=== PATIENT | male | born 1950 | race African-American/Black ===

== ENCOUNTER 2017-10-19 11:05 | Outpatient (CLI) | payer MEDICARE, MEDICAID ==
[2017-10-19 11:36] LABS: CREATININE 0.9 mg/dL (0.6-1.2)
[2017-10-19] MEDS ORDERED: BARIUM SULFATE 450 ML BOTTLE PO ONE (13:14)
--- NOTE | 2017-10-19 14:18 | CT Report ---
Procedure Date: 10/19/2017 Accession Number: [id number] / [id number] Procedure: CT - Chest/Lung Screen Low Dose W/O CPT Code: FULL RESULT: EXAM CT LUNG SCREEN EXAM DATE: 10/19/2017 1:15 PM. HISTORY: 67 [id number] patient with [id number] smoking history. Currently smoking: No. The patient reportedly has a history of CBD and weight loss. COMPARISON: None.. TECHNIQUE: CT examination of the entire thorax without contrast was performed using low-dose technique. Thin section coronal, axial, sagittal and MIP axial images were obtained. In accordance with CT protocol optimization, one or more of the following dose reduction techniques were utilized for this exam: automated exposure control, adjustment of mA and/or KV based on patient size, or use of iterative reconstructive technique. FINDINGS: Nodules: Right upper lobe: 0.5 cm spiculated apical nodule, 6 mm solid nodule posteriorly. Right middle lobe: 0.7 cm nodule in the horizontal fissure, favor lymph node. Right lower lobe: None. Left upper lobe: 0.6 cm nodule along the fissure, favor lymph node. Left lower lobe: None. Emphysema: None. Pleura: Unremarkable. Aorta: Unremarkable. Mediastinum: None. Coronary calcifications: None. Other pulmonary findings: None. Other extrapulmonary findings: None. IMPRESSION: Lung-RADS ASSESSMENT CATEGORY: 3 -probably benign finding(s) -short-term follow-up suggested; includes nodules with a low likelihood of becoming a clinically active cancer. RECOMMENDATION: Follow-up low dose chest CT in 6 months. RADIA
--- NOTE | 2017-10-21 04:10 | CT Report ---
Procedure Date: 10/19/2017 Accession Number: [id number] / [id number] Procedure: CT - Abdomen/Pelvis W/O CPT Code: FULL RESULT: EXAM: Abdomen/Pelvis W/O DATE: 10/19/2017 1:15 PM CLINICAL HISTORY: ABNORMAL WEIGHT LOSS COMPARISON: None. TECHNIQUE: Routine helical CT imaging was performed through the abdomen and pelvis. IV contrast: None. Enteric contrast: Yes. Reconstructions: Coronal and sagittal. In accordance with CT protocol optimization, one or more of the following dose reduction techniques were utilized for this exam: automated exposure control, adjustment of mA and/or KV based on patient size, or use of iterative reconstructive technique. FINDINGS: The noncontrast liver, gallbladder, spleen, adrenal glands, kidneys, pancreas are unremarkable. There is no bowel obstruction, free fluid or free air. No abdominal or pelvic mass or lymphadenopathy is identified. Degenerative levoconvex thoracolumbar scoliosis is identified. There are no aggressive osseous lesions. IMPRESSION: No mass is identified. Please note that sensitivity of noncontrast CT abdomen pelvis is limited. Degenerative scoliosis of the lumbar spine. RADIA
== END 2017-10-19 11:06 | disposition home or self-care (01) ==
LOC: LAB 11:05
PROVIDERS: ATTEND Family Medicine
DX: Z12.2 Encounter for screening for malignant neoplasm of respiratory organs (principal); R91.8 Other nonspecific abnormal finding of lung field; R63.4 Abnormal weight loss; Z87.891 Personal history of nicotine dependence; Z86.19 Personal history of other infectious and parasitic diseases
CPT/HCPCS: 36415; 74176; 82565; A9270; G0297

== ENCOUNTER 2017-11-23 12:58 | Emergency (ER) | payer MEDICARE, MEDICAID ==
--- NOTE | 2017-11-23 14:23 | ED Physician Documentation ---
PD HPI CHEST PAIN - Stated complaint Stated Complaint: CHEST PX - Chief complaint Chief Complaint: Cardiac - History obtained from History obtained from: Patient - History of Present Illness Timing - onset: Other (67-year-old gentleman with months worth of unintentional weight loss. He says every time he eats he vomits afterwards. He had a CAT scan done which was negative. He has not had an upper endoscopy. Over the last month or so he has had constant left-sided sharp chest pain that radiates to the back and like a band around his upper abdomen that is been much worse over the last 48 hours. He has had some difficulty breathing but no cough. The chest pain is nonexertional and non-positional. There is nothing he does the changes it. Is not related to eating. Again it has been constant for the last month but worse over the last 4 days.) Review of Systems Constitutional: denies: Fever, Chills Cardiac: reports: Chest pain / pressure. denies: Palpitations, Pedal edema, Calf pain Respiratory: reports: Dyspnea. denies: Cough, Hemoptysis, Wheezing GI: reports: Abdominal Pain, Nausea, Vomiting PD PAST MEDICAL HISTORY - Past Medical History Cardiovascular: None, Hypertension Respiratory: COPD Endocrine/Autoimmune: None GI: GERD, Hepatitis : Benign prostate hypertrophy HEENT: Other Psych: Depression, Anxiety Musculoskeletal: Osteoarthritis, Chronic back pain Derm: None - Past Surgical History General: Colonoscopy - Present Medications Home Medications: Ambulatory Orders Medication Instructions Recorded Confirmed RX: Buspirone HCl 10 mg PO DAILY 08/30/13 11/25/14 RX: Gabapentin 400 mg PO TID 08/30/13 11/25/14 Albuterol Sulfate [Proair Hfa] 1 puffs IH BID 11/22/14 11/25/14 Hydrocodone/Acetaminophen 1 - 2 each PO Q6H PRN #7 tablet 11/23/17 [Hydrocodon-Acetaminophen 5-325] Ipratropium/Albuterol [Combivent 11/23/17 Respimat] RX: Doxazosin [Cardura] 4 mg DAILY 11/23/17 11/23/17 RX: Oxybutynin [Ditropan] 15 mg DAILY 11/23/17 11/23/17 RX: buPROPion [Wellbutrin Sr] 150 mg DAILY 11/23/17 11/23/17 RX: raNITIdine [Zantac] 150 mg 11/23/17 - Allergies Allergies/Adverse Reactions: Allergies Allergy/AdvReac Type Severity Reaction Status Date / Time mercury (elemental) Allergy Intermediate Hives Verified 11/25/14 10:22 [Mercury (Elemental)] iodine AdvReac Intermediate Emesis Verified 11/22/14 14:44 - Social History Does the pt smoke?: Yes Does the pt drink ETOH?: No Does the pt have substance abuse?: No - Family History Family history: reports: Non contributory PD ED PE NORMAL - Vitals Vital signs reviewed: Yes - General General: Alert and oriented X 3, No acute distress - HEENT HEENT: PERRL, EOMI - Neck Neck: Supple, no meningeal sign, No bony TTP - Cardiac Cardiac: RRR, No murmur - Respiratory Respiratory: No respiratory distress, Clear bilaterally - Abdomen Abdomen: Normal bowel sounds, Soft, Non tender - Extremities Extremities: No edema, No calf tenderness / cord - Neuro Neuro: Alert and oriented X 3, Normal speech - Psych Psych: Normal mood, Normal affect Results - Vitals Vitals: Vital Signs - 24 hr 11/23/17 11/23/17 13:01 16:31 Temperature 37.0 C Heart Rate 52 L 65 Respiratory 16 18 Rate Blood Pressure 152/116 H 119/87 H O2 Saturation 97 97 Oxygen O2 Source Room air - EKG (time done) 1307 Rate: Rate (enter#) (98) Rhythm: NSR, LAE [place]: Normal Intervals: Normal [place] QRS: LVH Compare to prior EKG: Changed from prior EKG (Last EKG on the chart was August 29, 2013, since then he has increased left ventricular hypertrophy.) Computer interpretation: Agree with computer - Labs Labs: Laboratory Tests 11/23/17 11/23/17 11/23/17 13:20 13:20 13:20 WBC 9.7 RBC 4.90 Hgb 15.6 Hct 45.7 MCV 93.3 MCH 31.9 H MCHC 34.2 RDW 12.8 Plt Count 258 MPV 8.8 Neut # (Auto) 4.7 Lymph # (Auto) 3.8 H Mcminn # (Auto) 0.7 Eos # (Auto) 0.4 Baso # (Auto) 0.1 Absolute Nucleated RBC 0.01 Nucleated RBC % 0.1 Sodium 140 Potassium 3.9 Chloride 104 Carbon Dioxide 25 Anion Gap 11.0 BUN 10 Creatinine 0.9 Estimated GFR (MDRD) 102 Glucose 113 H Calcium 9.9 Total Bilirubin 1.2 H AST 75 H ALT 92 H Alkaline Phosphatase 65 Troponin I < 0.04 Total Protein 8.3 H Albumin 4.8 Globulin 3.5 Albumin/Globulin Ratio 1.4 Lipase 34 PD MEDICAL DECISION MAKING - ED course ED course: 67-year-old gentleman with chronic upper abdominal pain and vomiting after eating now with chest pain for months but worse over the last several days and constant therefore single troponin should be predictive. Given the radiation to the stomach and back aortic dissection was also a concern and CT for this was negative. His pain was easy to control here and follow-up for upper endoscopy was advised. - Sepsis Event Vital Signs: Vital Signs - 24 hr 11/23/17 11/23/17 13:01 16:31 Temperature 37.0 C Heart Rate 52 L 65 Respiratory 16 18 Rate Blood Pressure 152/116 H 119/87 H O2 Saturation 97 97 Oxygen O2 Source Room air Departure - Departure Disposition: 01 Home, Self Care Clinical Impression: Chest pain Condition: Good Record reviewed to determine appropriate education?: Yes Instructions: ED Chest Pain Atypical Unkn Cause Prescriptions: Hydrocodone/Acetaminophen [Hydrocodon-Acetaminophen 5-325] 1 - 2 each PO Q6H PRN #7 tablet PRN Reason: pain Comments: Followup with your physician in 1-2 days. Return if worse. Talk with your doctor about an upper endoscopy and gastric emptying study given your chronic food- related upper abdominal pain and vomiting. Your blood pressure was elevated today on check into the emergency department. This does not mean that you have hypertension, it is a common phenomenon to come to the emergency department and have elevated blood pressure. I recommend that you see your primary care physician within the week to have it rechecked when you are feeling better. Discharge Date/Time: 11/23/17 16:32
[2017-11-23] MEDS ORDERED: MORPHINE 2 MG/ML CARPUJECT IVP STA (14:24)
[2017-11-23] MEDS ORDERED: ONDANSETRON 4 MG/2 ML VIAL IVP STA (14:24)
[2017-11-23 14:41] LABS: BASOPHILS # (AUTO) 0.1 10^3/uL (0.0-0.1); BASOPHILS % (AUTO) 0.7 %; EOSINOPHILS # (AUTO) 0.4 10^3/uL (0.0-0.7); EOSINOPHILS % (AUTO) 4.3 %; HGB - HEMOGLOBIN 15.6 g/dL (14.0-18.0); LYMPHOCYTES # (AUTO) 3.8 10^3/uL (1.5-3.5); LYMPHOCYTES % (AUTO) 39.1 %; MEAN CORPUSCULAR HEMOGLOBIN 31.9 pg (27.0-31.0); MEAN CORPUSCULAR HGB CONC 34.2 g/dL (32.0-36.0); MEAN CORPUSCULAR VOLUME 93.3 fL (80.0-94.0); MEAN PLATELET VOLUME 8.8 fL (7.4-11.4); MONOCYTES # (AUTO) 0.7 10^3/uL (0.0-1.0); MONOCYTES % (AUTO) 7.3 %; NEUTROPHILS # (AUTO) 4.7 10^3/uL (1.5-6.6); NEUTROPHILS % (AUTO) 48.6 %; PLT - PLATELET COUNT 258 10^3/uL (130-450); RED CELL DISTRIBUTION WIDTH 12.8 % (12.0-15.0); WHITE BLOOD COUNT 9.7 x10^3/uL (4.8-10.8)
[2017-11-23 14:52] LABS: ALBUMIN 4.8 g/dL (3.2-5.5); ALBUMIN/GLOBULIN RATIO 1.4 (1.0-2.2); BILIRUBIN,TOTAL 1.2 mg/dL (0.2-1.0); CALCIUM 9.9 mg/dL (8.5-10.3); CREATININE 0.9 mg/dL (0.6-1.2); TOTAL PROTEIN 8.3 g/dL (6.7-8.2)
[2017-11-23] MEDS ORDERED: IOPAMIDOL-300 100 ML VIAL ONE (14:52)
[2017-11-23] MEDS ORDERED: IOPAMIDOL-300 100 ML VIAL IVP ONE (15:31)
--- NOTE | 2017-11-23 16:06 | CT Report ---
Reason: chest back pain, has had contrast before, no issue Procedure Date: 11/23/2017 Accession Number: [id number] / [id number] Procedure: CT - Chest Angio (AORTA) CPT Code: FULL RESULT: EXAM: CT ANGIOGRAM CHEST EXAM DATE: 11/23/2017 03:34 PM. CLINICAL HISTORY: Chest back pain, has had contrast before, no issue. COMPARISONS: CHEST SCREEN LOW DOSE W/O 10/19/2017. TECHNIQUE: Routine axial helical CT angiographic imaging was performed through the chest. IV Contrast: ISOVUE 300 100mL. Reconstructions: Coronal and sagittal MIP and MPR reconstructions. In accordance with CT protocol optimization, one or more of the following dose reduction techniques were utilized for this exam: automated exposure control, adjustment of mA and/or KV based on patient size, or use of iterative reconstructive technique. FINDINGS: Vascular Structures: Normal. No aneurysm, dissection, or significant atherosclerotic disease of the thoracic aorta. Lungs/Pleura: Right apex lobular pulmonary nodule measuring 7 mm, unchanged. No pleural effusion, consolidation or pneumothorax. Mediastinum: Normal. No cardiac enlargement or adenopathy. A couple of a left upper pole renal cysts, largest measures 1.7 cm. Bones: No acute bone findings. Degenerative disk disease. IMPRESSION: 1. No thoracic aortic aneurysm or dissection. 2. No acute findings are seen. 3. Right apex lobular pulmonary nodule measuring 7 mm, unchanged. RADIA
[2017-11-23 16:33] VITALS: BP 119/87
== END 2017-11-23 16:32 | disposition home or self-care (01) ==
LOC: ED 12:58
DX: R07.9 Chest pain, unspecified (principal); R91.1 Solitary pulmonary nodule; R94.31 Abnormal electrocardiogram [ECG] [EKG]; I10 Essential (primary) hypertension
CPT/HCPCS: 36415; 71275; 80053; 83690; 84484; 85025; 93005; 96374; 96375; 99283; Q9967

== ENCOUNTER 2018-03-23 07:55 | Outpatient (CLI) | payer MEDICARE, MEDICAID ==
--- NOTE | 2018-03-23 09:56 | Ultrasound Report ---
Reason: HISTORY OF VIRAL HEPATITIS Procedure Date: 03/23/2018 Accession Number: [id number] / [id number] Procedure: US - Abdomen Complete CPT Code: FULL RESULT: EXAM: ABDOMEN ULTRASOUND EXAM DATE: 03/23/2018 09:20 AM. CLINICAL HISTORY: HISTORY OF VIRAL HEPATITIS. COMPARISON: ABDOMEN/PELVIS W/O 10/19/2017 1:10 PM CHEST ANGIO (AORTA) 11/23/2017 3:20 PM. TECHNIQUE: Real-time scanning was performed with static images obtained. FINDINGS: Liver: Normal in size and echotexture. 15 cm. Main portal vein flow: Hepatopetal. Gallbladder: Normal. No stones, wall thickening, or sonographic Avalos's sign. Biliary System: Common bile duct measures 3.4 mm. No intrahepatic or extrahepatic ductal dilatation. Pancreas: Visualized portion is unremarkable. Kidneys: Right: 10.7 cm longitudinally. No contour-deforming mass, stones, or hydronephrosis. 0.8 cm anechoic mid right renal cyst. Left: 11 cm longitudinally. No contour-deforming mass, stones, or hydronephrosis. 1.6 cm superior left renal anechoic cyst. Spleen: 8.3 x 3 x 3.2 cm. Normal in size and echotexture. Aorta and Inferior Vena Cava: Unremarkable. Other: None. IMPRESSION: 1. No renal mass, stone or hydronephrosis. 2. Normal gallbladder and common bile duct. 3. Bilateral simple renal cyst. RADIA
== END 2018-03-23 07:56 | disposition home or self-care (01) ==
LOC: DI 07:55
PROVIDERS: ATTEND Physician Assistant Medical
DX: K59.00 Constipation, unspecified (principal); Z86.19 Personal history of other infectious and parasitic diseases; R63.4 Abnormal weight loss; R13.10 Dysphagia, unspecified; N28.1 Cyst of kidney, acquired
CPT/HCPCS: 76700

== ENCOUNTER 2021-04-16 12:52 | Emergency (ER) | payer MEDICARE, MEDICAID ==
--- NOTE | 2021-04-16 15:22 | XRAY Report ---
PROCEDURE: Hip w/Pelvis 2-3V LT INDICATIONS: fall and pain TECHNIQUE: AP pelvis with lateral view(s) of the left hip(s). COMPARISON: None. FINDINGS: Bones: No fractures or dislocations. Right worse than left bilateral hip joint osteoarthritic dave es are seen. No evidence of avascular necrosis of femoral head. Pelvic ring appears intact. No suspi cious bony lesions. Soft tissues: The visualized bowel gas pattern is normal. No suspicious soft tissue calcifications. IMPRESSION: No acute left hip fracture or dislocation. Mild to moderate left hip joint osteoarthritis . No evidence of avascular necrosis. Reviewed by: Harman Zepeda MD on 04/16/2021 3:21 PM PST Approved by: Harman Zepeda MD on 04/16/2021 3:21 PM PST Station ID: [id number]
--- NOTE | 2021-04-16 15:22 | XRAY Report ---
PROCEDURE: Knee 2 View LT INDICATIONS: pain/fall TECHNIQUE: 2 views of the left knee(s) were acquired. COMPARISON: None. FINDINGS: Bones: No fractures or dislocations. Moderate medial femoral tibial compartment osteoarthritic edmondson ges are seen. No suspicious bony lesions. Soft tissues: No joint effusion. No suspicious soft tissue calcifications. IMPRESSION: Moderate medial femoral-tibial compartment osteoarthritis. No acute fracture or dislocat ion. No significant joint effusion. Reviewed by: Harman Zepeda MD on 04/16/2021 3:21 PM PST Approved by: Harman Zepeda MD on 04/16/2021 3:21 PM PST Station ID: [id number]
[2021-04-16 15:37] VITALS: BP 140/80
[2021-04-16] MEDS ORDERED: DEXAMETHASONE 10 MG/ML VIAL PO STA (15:44)
[2021-04-16] MEDS ORDERED: CHERRY SYRUP 10 ML UDC PO ONE (15:44)
[2021-04-16] MEDS ORDERED: KETOROLAC 60 MG/2 ML VIAL IM STA (15:44)
--- NOTE | 2021-04-16 15:46 | ED Physician Documentation ---
PD HPI LOWER EXT INJURY - Stated complaint Stated Complaint: left HIP & LEG PX - Chief complaint Chief Complaint: Ext Problem - History obtained from History obtained from: Patient - History of Present Illness PD HPI LOW EXT INJURY LOCATION: Left, Hip, Knee Type of injury: Fall Where injury occurred: Home Timing - onset: How many weeks ago (3) Timing - duration: Weeks (3) Timing - details: Abrupt onset, Still present, Waxing and waning Improved by: Rest Worsened by: Moving, Palpating Associated symptoms: No: Weakness, Numbness, Tingling, Swelling Contributing factors: No: Anticoagulated Similar symptoms before: Has not had sx before Recently seen: Not recently seen - Additional information Additional information: Previously well 70-year-old male reports that he had a fall at his home injuring his left borges about 3 weeks ago he had a bruise to the area that has resolved. Following that he had a fall onto his buttocks. Since that time he has had some pain that is radiated from his left hip down his leg on the lateral aspect of the leg. He has worse pain with ambulation and weightbearing and he has both a component of direct pain and a burning sensation. He denies numbness. He has had pain to direct palpation of the trochanter. He describes some pain to his back as well. He has not had the symptoms previously. Review of Systems Constitutional: denies: Fever Eyes: denies: Decreased vision Ears: denies: Ear pain Nose: denies: Congestion Throat: denies: Sore throat Cardiac: denies: Chest pain / pressure Respiratory: denies: Dyspnea, Cough, Wheezing GI: denies: Abdominal Pain, Nausea, Vomiting, Constipation, Diarrhea : denies: Dysuria Skin: denies: Rash Musculoskeletal: reports: Back pain, Extremity pain, Joint pain, Pain with weight bearing. denies: Neck pain, Extremity swelling, Joint swelling Neurologic: denies: Generalized weakness, Focal weakness, Numbness PD PAST MEDICAL HISTORY - Past Medical History Past Medical History: Yes Cardiovascular: None, Hypertension Respiratory: COPD Endocrine/Autoimmune: None GI: GERD, Hepatitis : Benign prostate hypertrophy HEENT: Other Psych: Depression, Anxiety Musculoskeletal: Osteoarthritis, Chronic back pain Derm: None - Past Surgical History Past Surgical History: Yes General: Colonoscopy - Present Medications Home Medications: Ambulatory Orders Medication Instructions Recorded Confirmed Buspirone HCl 10 mg PO DAILY 08/30/13 11/25/14 Gabapentin 400 mg PO TID 08/30/13 11/25/14 Albuterol Sulfate [Proair Hfa] 1 puffs IH BID 11/22/14 11/25/14 Doxazosin [Cardura] 4 mg DAILY 11/23/17 11/23/17 Hydrocodone/Acetaminophen 1 - 2 each PO Q6H PRN #7 tablet 11/23/17 [Hydrocodon-Acetaminophen 5-325] Ipratropium/Albuterol [Combivent 11/23/17 Respimat] Oxybutynin [Ditropan] 15 mg DAILY 11/23/17 11/23/17 buPROPion [Wellbutrin Sr] 150 mg DAILY 11/23/17 11/23/17 raNITIdine [Zantac] 150 mg 11/23/17 Cyclobenzaprine [Flexeril] 10 mg PO TID PRN #20 tablet 04/16/21 - Allergies Allergies/Adverse Reactions: Allergies Allergy/AdvReac Type Severity Reaction Status Date / Time mercury (elemental) Allergy Intermediate Hives Verified 04/16/21 13:10 [Mercury (Elemental)] iodine AdvReac Intermediate Emesis Verified 04/16/21 13:10 - Social History Does the pt smoke?: Yes Smoking Status: Current every day smoker Does the pt drink ETOH?: No Does the pt have substance abuse?: No PD ED PE NORMAL - Vitals Vital signs reviewed: Yes (Tachycardic and hypertensive mild) - General General: Alert and oriented X 3, No acute distress, Well developed/nourished - HEENT HEENT: Atraumatic, PERRL, EOMI - Neck Neck: Supple, no meningeal sign, No bony TTP - Respiratory Respiratory: No respiratory distress - Back Back: No spinal TTP, Other (Mild paraspinous muscle tenderness to the left lower lumbar spine extending into the sciatic notch.) - Derm Derm: Normal color, Warm and dry, No rash - Extremities Extremities: No deformity, No edema, Other (There is some pain to direct palpation of the trochanter although this is difficult to evaluate. There is no specific pain to the knee the ligaments are stable full range of motion. No joint line pain.) - Psych Psych: Normal mood, Normal affect Results - Vitals Vitals: Vital Signs - 24 hr 04/16/21 04/16/21 13:06 15:10 Temperature 36.0 C L 36.5 C Heart Rate 101 H 96 Respiratory 16 16 Rate Blood Pressure 162/83 H 140/80 H O2 Saturation 100 100 Oxygen O2 Source Room air - Rads (name of study) hip Radiology: Prelim report reviewed (Impression: No acute left hip fracture or dislocation. Mild to moderate left hip joint osteoarthritis. No evidence of avascular necrosis.), EMP read indepedently, See rad report Left knee Radiology: Prelim report reviewed (Impression moderate medial femoral-tibial compartment osteoarthritis. No acute fracture or dislocation. No significant joint effusion.), EMP read indepedently, See rad report PD MEDICAL DECISION MAKING - ED course Complexity details: reviewed results, re-evaluated patient, considered differential, d/w patient ED course: 70-year-old male with a fall at his home is now developed some pain radiating down his left leg. This appears to be consistent with sciatica. The patient does have some direct tenderness over the trochanter x-rays are without specific findings. There is some osteoarthritis in both the knee and hip and this does not appear to be significant. The patient is treated here in the emergency dep artment with 10 mg of dexamethasone and 60 mg of Toradol IM. We will place him on a course of pain medication muscle relaxant and have him follow-up with his primary care doctor. Departure - Departure Disposition: 01 Home, Self Care Clinical Impression: Sciatica Qualifiers: Laterality: left Qualified Code(s): M54.32 - Sciatica, left side Condition: Stable Instructions: ED Sciatica Follow-Up: Manjit Cox MD [Primary Care Provider] - Prescriptions: Cyclobenzaprine [Flexeril] 10 mg PO TID PRN #20 tablet PRN Reason: Spasms HYDROcod/ACETAM 5/325 [[place]ak 5/325] 1 - 2 tablet PO Q6H PRN #14 tablet PRN Reason: Pain Comments: Tor, today it looks like the pain you are having down your left leg is likely coming from your back. We have given you a dose of dexamethasone which may help over the day today with reducing your symptoms in general. This may take more than a week to resolve. We have provided a muscle relaxant to aid in pain control. This has been E scribed to [facility] in [place]. If you have good relief with the use of the dexamethasone this is an indication that this may be an issue with a disc in your back and if your symptoms return further work-up including an MRI and possible epidural steroid injection would be indicated. Follow-up with your primary care doctor.
== END 2021-04-16 16:13 | disposition home or self-care (01) ==
LOC: ED 12:52
DX: M54.32 Sciatica, left side (principal); W19.XXXA Unspecified fall, initial encounter; Y92.009 Unspecified place in unspecified non-institutional (private) residence as the place of occurrence of the external cause; I10 Essential (primary) hypertension; F17.200 Nicotine dependence, unspecified, uncomplicated; Z91.81 History of falling
CPT/HCPCS: 73502; 73560; 96372; 99283; 99284; A9270

== ENCOUNTER 2021-05-26 12:49 | Outpatient (CLI) | payer MEDICARE, OTHER, MEDICAID ==
--- NOTE | 2021-05-26 20:09 | XRAY Report ---
PROCEDURE: Tib/Fib LT INDICATIONS: PAIN IN LEFT LOWER LEG TECHNIQUE: 2 views of the tibia and fibula were acquired. COMPARISON: FINDINGS: Bones: No acute fractures or dislocations. No suspicious bony lesions. Soft tissues: No suspicious soft tissue calcifications or masses. IMPRESSION: No acute osseous abnormality. If symptoms persist or there is continued clinical concern, further derik luation with MRI or CT may be helpful. Reviewed by: Michelet Hernandez MD on 05/26/2021 8:08 PM PDT Approved by: Michelet Hernandez MD on 05/26/2021 8:08 PM PDT Station ID: [id number]
== END 2021-05-26 12:50 | disposition home or self-care (01) ==
LOC: DI 12:49
PROVIDERS: ATTEND Physician Assistant
DX: M79.662 Pain in left lower leg (principal)

== ENCOUNTER 2022-04-26 15:14 | Emergency (ER) | payer MEDICARE, MEDICAID ==
--- NOTE | 2022-04-26 15:46 | XRAY Report ---
PROCEDURE: Chest 2 View X-Ray INDICATIONS: Chest congestion/pain TECHNIQUE: 2 views of the chest were acquired. COMPARISON: None. FINDINGS: Surgical changes and devices: None. Lungs and pleura: No pleural effusions or pneumothorax. Lungs are clear. Mediastinum: Mediastinal contours are normal. Heart size is normal. Bones and chest wall: No suspicious bony abnormalities. Soft tissues appear unremarkable. IMPRESSION: No acute cardiopulmonary process demonstrated radiographically. Reviewed by: Heath Lovell MD on 04/26/2022 3:45 PM PST Approved by: Heath Lovell MD on 04/26/2022 3:45 PM PST Station ID: [id number]
[2022-04-26] MEDS ORDERED: SODIUM CHLORIDE 0.9% 1,000 ML IV STA (18:32)
--- NOTE | 2022-04-26 18:36 | ED Physician Documentation ---
History of Present Illness - Stated complaint Stated Complaint: CHEST PX - Chief complaint Chief Complaint: Resp - Additonal information Additional information: 71-year-old male presents to the emergency department for several days of pleuri tic chest pain. He reports a cough but is unable to bring up any sputum. He denies any congestion. States that he is "bone dry." Reports negative COVID at home. Fully vaccinated. Denies that this pain is worse with exertion. History is obtained from patient. He is a very poor historian. States he is on a lot of medicines but is unable to tell me them. States his people of natural causes and not in the hospital. Review of Systems Constitutional: reports: Fever Cardiac: reports: Chest pain / pressure, Palpitations Respiratory: reports: Cough. denies: Dyspnea GI: reports: Reviewed and negative : reports: Reviewed and negative PD PAST MEDICAL HISTORY - Past Medical History Past Medical History: Yes Cardiovascular: None, Hypertension Respiratory: COPD Endocrine/Autoimmune: None GI: GERD, Hepatitis : Benign prostate hypertrophy HEENT: Other Psych: Depression, Anxiety Musculoskeletal: Osteoarthritis, Chronic back pain Derm: None - Past Surgical History Past Surgical History: Yes General: Colonoscopy - Present Medications Home Medications: Ambulatory Orders Medication Instructions Recorded Confirmed Buspirone HCl 10 mg PO DAILY 08/30/13 11/25/14 Gabapentin 400 mg PO TID 08/30/13 11/25/14 Albuterol Sulfate [Proair Hfa] 1 puffs IH BID 11/22/14 11/25/14 Doxazosin [Cardura] 4 mg DAILY 11/23/17 11/23/17 Hydrocodone/Acetaminophen 1 - 2 each PO Q6H PRN #7 tablet 11/23/17 [Hydrocodon-Acetaminophen 5-325] Ipratropium/Albuterol [Combivent 11/23/17 Respimat] Oxybutynin [Ditropan] 15 mg DAILY 11/23/17 11/23/17 buPROPion [Wellbutrin Sr] 150 mg DAILY 11/23/17 11/23/17 raNITIdine [Zantac] 150 mg 11/23/17 Cyclobenzaprine [Flexeril] 10 mg PO TID PRN #20 tablet 04/16/21 Apixaban [Eliquis] 2.5 mg PO BID #14 tablet 04/26/22 - Allergies Allergies/Adverse Reactions: Allergies Allergy/AdvReac Type Severity Reaction Status Date / Time mercury (elemental) Allergy Intermediate Hives Verified 04/16/21 13:10 [Mercury (Elemental)] iodine AdvReac Intermediate Emesis Verified 04/16/21 13:10 - Social History Does the pt smoke?: Yes Smoking Status: Current every day smoker Does the pt drink ETOH?: No Does the pt have substance abuse?: No PD ED PE NORMAL - General General: Alert and oriented X 3, No acute distress, Well developed/nourished - HEENT HEENT: Atraumatic, Moist mucous membranes - Cardiac Cardiac: RRR (Sinus tachycardia variable rate 110's to 120s) - Respiratory Respiratory: No respiratory distress, Clear bilaterally - Abdomen Abdomen: Normal bowel sounds, Soft - Back Back: No CVA TTP - Derm Derm: Normal color, No rash - Extremities Extremities: No deformity, No tenderness to palpate, Normal ROM s pain - Neuro Neuro: Alert and oriented X 3, relations mgr 2-12 intact Eye Opening: Spontaneous Motor: Obeys Commands Verbal: Oriented GCS Score: 15 Results - Vitals Vitals: Vital Signs - 24 hr 04/26/22 04/26/22 04/26/22 15:20 19:09 19:55 Temperature 38.1 C H Heart Rate 120 H 107 H 107 H Respiratory 16 15 24 Rate Blood Pressure 126/86 H 135/58 H 127/92 H O2 Saturation 100 100 95 04/26/22 20:39 Temperature Heart Rate 110 H Respiratory 15 Rate Blood Pressure 127/86 H O2 Saturation 100 Oxygen O2 Source Room air - EKG (time done) 1532 Rate: Rate (enter#) (116) Rhythm: Sinus tachycardia [place]: Normal, Other (PVC) Intervals: Normal [place]. No: Prolonged QT QRS: Normal Ischemia: Non specific changes Compare to prior EKG: Changed from prior EKG (faster rade, unchanged morphology) Computer interpretation: Agree with computer - Labs Labs: Laboratory Tests 04/26/22 04/26/22 04/26/22 18:32 18:42 18:42 WBC 15.2 H RBC 5.29 Hgb 15.6 Hct 48.9 MCV 92.4 MCH 29.5 MCHC 31.9 L RDW 13.2 Plt Count 260 MPV 10.0 Neut # (Auto) 9.6 H Lymph # (Auto) 4.1 H [place] # (Auto) 1.3 H Eos # (Auto) 0.2 Baso # (Auto) 0.1 Absolute Nucleated RBC 0.00 Nucleated RBC % 0.0 PT 12.8 H INR 1.2 D-Dimer Sodium 136 Potassium 3.7 Chloride 98 L Carbon Dioxide 29 Anion Gap 9.0 BUN 13 Creatinine 1.0 Estimated GFR (MDRD) 90 Glucose 108 H Calcium 10.4 H Total Bilirubin 1.0 AST 19 ALT 19 Alkaline Phosphatase 82 Troponin I High Sens B-Natriuretic Peptide Total Protein 8.8 H Albumin 4.8 Globulin 4.0 Albumin/Globulin Ratio 1.2 Lipase 25 Nasal Adenovirus (PCR) Nasal B. parapertussis DNA (PCR) Nasal Coronavir 229E PCR Nasal Coronavir HKU1 PCR Nasal Coronavir NL63 PCR Nasal Coronavir OC43 PCR Nasal Enterovir/Rhinovir PCR Nasal Influenza B PCR Nasal Influenza A PCR Nasal Parainfluen 1 PCR Nasal Parainfluen 2 PCR Nasal Parainfluen 3 PCR Nasal Parainfluen 4 PCR Nasal RSV (PCR) Nasal B.pertussis DNA PCR Nasal C.pneumoniae (PCR) [place] Human Metapneumo PCR Nasal M.pneumoniae (PCR) Nasal SARS-CoV-2 (PCR) 04/26/22 04/26/22 04/26/22 18:42 18:42 18:42 WBC RBC Hgb Hct MCV MCH MCHC RDW Plt Count MPV Neut # (Auto) Lymph # (Auto) [place] # (Auto) Eos # (Auto) Baso # (Auto) Absolute Nucleated RBC Nucleated RBC % PT INR D-Dimer Sodium Potassium Chloride Carbon Dioxide Anion Gap BUN Creatinine Estimated GFR (MDRD) Glucose Calcium Total Bilirubin AST ALT Alkaline Phosphatase Troponin I High Sens 13.1 B-Natriuretic Peptide 41 Total Protein Albumin Globulin Albumin/Globulin Ratio Lipase Nasal Adenovirus (PCR) NOT DETECTED Nasal B. parapertussis DNA (PCR) NOT DETECTED Nasal Coronavir 229E PCR NOT DETECTED Nasal Coronavir HKU1 PCR NOT DETECTED Nasal Coronavir NL63 PCR NOT DETECTED Nasal Coronavir OC43 PCR NOT DETECTED Nasal Enterovir/Rhinovir PCR NOT DETECTED Nasal Influenza B PCR NOT DETECTED Nasal Influenza A PCR NOT DETECTED Nasal Parainfluen 1 PCR NOT DETECTED Nasal Parainfluen 2 PCR NOT DETECTED Nasal Parainfluen 3 PCR NOT DETECTED Nasal Parainfluen 4 PCR NOT DETECTED Nasal RSV (PCR) NOT DETECTED Nasal B.pertussis DNA PCR NOT DETECTED Nasal C.pneumoniae (PCR) NOT DETECTED [place] Human Metapneumo PCR NOT DETECTED Nasal M.pneumoniae (PCR) NOT DETECTED Nasal SARS-CoV-2 (PCR) NOT DETECTED 04/26/22 18:42 WBC RBC Hgb Hct MCV MCH MCHC RDW Plt Count MPV Neut # (Auto) Lymph # (Auto) [place] # (Auto) Eos # (Auto) Baso # (Auto) Absolute Nucleated RBC Nucleated RBC % PT INR D-Dimer > 1050.0 H Sodium Potassium Chloride Carbon Dioxide Anion Gap BUN Creatinine Estimated GFR (MDRD) Glucose Calcium Total Bilirubin AST ALT Alkaline Phosphatase Troponin I High Sens B-Natriuretic Peptide Total Protein Albumin Globulin Albumin/Globulin Ratio Lipase Nasal Adenovirus (PCR) Nasal B. parapertussis DNA (PCR) Nasal Coronavir 229E PCR Nasal Coronavir HKU1 PCR Nasal Coronavir NL63 PCR Nasal Coronavir OC43 PCR Nasal Enterovir/Rhinovir PCR Nasal Influenza B PCR Nasal Influenza A PCR Nasal Parainfluen 1 PCR Nasal Parainfluen 2 PCR Nasal Parainfluen 3 PCR Nasal Parainfluen 4 PCR Nasal RSV (PCR) Nasal B.pertussis DNA PCR Nasal C.pneumoniae (PCR) [place] Human Metapneumo PCR Nasal M.pneumoniae (PCR) Nasal SARS-CoV-2 (PCR) - Rads (name of study) cxr Radiology: Final report received (No acute cardiopulmonary process) PD Medical Decision Making - ED course Complexity details: reviewed results, re-evaluated patient, considered differential, d/w patient ED course: This is a 71-year-old male that presents to the emergency department for evaluation of several days pleuritic chest pain. He has had no cough no congestion. It simply hurts when he takes a deep breath. Here in the emergency department he presents well-appearing without hypoxia. However he is initially noted to be very tachycardic in the 120s. He is normal tensive. Screening EKG was nonischemic. On evaluation with the patient he had unremarkable cardiopulmonary auscultation sparing the tachycardia. He was quite clear with this provider that he did not have congestion or cough. A respiratory PCR panel was negative. Chest x-ray showed no findings of pneumonia. Subsequently I became concerned that this could be symptomatic of a pulmonary embolism, or ACS or heart failure. His BNP is not elevated he has no dependent edema or crackles on exam so I feel heart failure is less likely. High- sensitivity troponin is negative given several days of pain. In addition he has a nonischemic EKG making ACS less likely. The patient does have an elevated D-dimer even when adjusted for age. The patient has a severe contrast allergy as well as an iodine allergy and he adamantly refused premedication or CT imaging with contrast. I did do a noncontrast CT evaluating for the possibility of occult pneumonia given the mild leukocytosis that I see on labs. Reassuringly the CT shows no such findings. In addition there is no pleural effusion. There are stable pulmonary nodules which are essentially unchanged. Subsequently I discussed with the patient that given his elevated D-dimer, pleuritic chest pain, age, tachycardia, low-grade temperature elevation I was mostly concerned that his symptoms were due to a pulmonary embolism. Unfortunately we cannot do an angio of his chest. [facility] does not have nuclear medicine or the ability to complete V/Q perfusion scans. I offered the patient to transfer to an outlying hospital in order to obtain the appropriate imaging but he is quite adamant that he be allowed to be discharged home. I discussed with him that an untreated pulmonary embolism is potentially fatal. However he did not wish to remain in the ER any further. He states that he can see his primary care doctor and get the studies ordered. I discussed with him that in the settings we can consider treatment for short-term with anticoagulant medication i.e. Eliquis. Risks and benefits were thoroughly discussed with the patient and he elects to receive a 1 week course of Eliquis hoping that he can get the appropriate V/Q scanning completed as an outpatient. He understands that if his symptoms should change in any way, he have any concerns of headache, bloody bowel movements or urine, slurred speech, facial droop or have any falls or trauma he is to return immediately to the emergency department. At this time he is clinically stable though tachycardic and without hypoxia. He is discharged home in guarded condition AGAINST MEDICAL ADVICE Departure - Departure Disposition: 07 Against Medical Advice Clinical Impression: Pleuritic chest pain, Elevated d-dimer, Tachycardia Leukocytosis Qualifiers: Leukocytosis type: unspecified Qualified Code(s): D72.829 - Elevated white blood cell count, unspecified Condition: Serious Instructions: Apixaban oral tablets Follow-Up: Dimas Corey MD [Primary Care Provider] - Prescriptions: Apixaban [Eliquis] 2.5 mg PO BID #14 tablet Comments: Tor you are coming to the emergency department because for a few days you have had some pain when you take deep breaths. This is called pleuritic chest pain. Here in the emergency department we noted that you had a very high heart rate in the 120s. You also had an elevated D-dimer. This constellation of symptoms made us very worried that you could have a pulmonary embolism which is a blood clot in the lungs and can be fatal. Because you have an iodine contrast and you would not allow us to premedicate you for a CT scan with contrast, we are unable to officially confirm if you have a pulmonary embolism. I offered to attempt to transfer you to an outlying hospital in order to obtain a V/Q perfusion scan. This is a nuclear medicine scan that is not available at [facility]. You have declined to stay for transfer. You are choosing to leave AGAINST MEDICAL ADVICE with the understanding that if you have a pulmonary embolism it can be fatal. You report to me that you are going to follow-up tomorrow with Dr. Corey. He may be able to arrange outpatient pulmonary perfusion studies. You can also return to any emergency department if your symptoms worsen. Because we have high concern that this could be a pulmonary embolism we are elec ting to give you a week of anticoagulation. This is a medication called Eliquis. It prevents blood clots from forming. You are at higher risk for bleeding if you are taking these blood clot thinning medicines. If you fall and hit your head, have any blood in your stool, have blood in your urine, develop any sudden headache, have slurred speech or facial droop you should return immediately to the ER. I am giving you only 1 week of medicine because it is important that you have this possible diagnosis confirmed before then. Though you are choosing to leave AGAINST MEDICAL ADVICE you are welcome to return at any point should you choose to if your conditions worsen Today in the emergency department the x-ray of your chest and noncontrast CT of your lungs does not show any findings of pneumonia, or pleural effusions.
[2022-04-26 18:47] LABS: BASOPHILS # (AUTO) 0.1 10^3/uL (0.0-0.1); BASOPHILS % (AUTO) 0.4 %; EOSINOPHILS # (AUTO) 0.2 10^3/uL (0.0-0.7); EOSINOPHILS % (AUTO) 1.2 %; HCT - HEMATOCRIT 48.9 % (42.0-52.0); HGB - HEMOGLOBIN 15.6 g/dL (14.0-18.0); LYMPHOCYTES # (AUTO) 4.1 10^3/uL (1.5-3.5); LYMPHOCYTES % (AUTO) 26.8 %; MEAN CORPUSCULAR HEMOGLOBIN 29.5 pg (27.0-31.0); MEAN CORPUSCULAR HGB CONC 31.9 g/dL (32.0-36.0); MEAN CORPUSCULAR VOLUME 92.4 fL (80.0-94.0); MONOCYTES # (AUTO) 1.3 10^3/uL (0.0-1.0); MONOCYTES % (AUTO) 8.4 %; NEUTROPHILS # (AUTO) 9.6 10^3/uL (1.5-6.6); NEUTROPHILS % (AUTO) 62.9 %; PLT - PLATELET COUNT 260 10^3/uL (130-450); RED BLOOD COUNT 5.29 10^6/uL (4.70-6.10); RED CELL DISTRIBUTION WIDTH 13.2 % (12.0-15.0); WHITE BLOOD COUNT 15.2 x10^3/uL (4.8-10.8)
[2022-04-26 19:00] LABS: INR 1.2 (0.8-1.2); PT - PROTHROMBIN TIME 12.8 secs (9.9-12.6)
[2022-04-26 19:02] LABS: ALBUMIN 4.8 g/dL (3.2-5.5); ALBUMIN/GLOBULIN RATIO 1.2 (1.0-2.2); CALCIUM 10.4 mg/dL (8.5-10.3); POTASSIUM 3.7 mmol/L (3.5-5.0); TOTAL PROTEIN 8.8 g/dL (6.7-8.2)
[2022-04-26] MEDS ORDERED: iohexoL-300 100 ML VIAL ONE (19:07)
[2022-04-26 19:42] LABS: B. PARAPERTUSSIS- RESP PCR PAN NOT DETECTED; B. PERTUSSIS- RESP PCR PANEL NOT DETECTED; C. PNEUMONIAE- RESP PCR PANEL NOT DETECTED; CORONAVIRUS 229E-RESP PCR NOT DETECTED; CORONAVIRUS HKU1-RESP PCR NOT DETECTED; CORONAVIRUS NL63-RESP PCR NOT DETECTED; CORONAVIRUS OC43-RESP PCR NOT DETECTED; HUMAN METAPNEUMOVIRUS NOT DETECTED; INFLUENZA A- RESP PCR PANEL NOT DETECTED; INFLUENZA B - RESP PCR PANEL NOT DETECTED; M. PNEUMONIAE- RESP PCR PANEL NOT DETECTED; PARAINFLUENZA VIRUS 1 NOT DETECTED; PARAINFLUENZA VIRUS 2 NOT DETECTED; PARAINFLUENZA VIRUS 3 NOT DETECTED; PARAINFLUENZA VIRUS 4 NOT DETECTED; RHINOVIRUS/ENTEROVIRUS NOT DETECTED; RSV- RESP PCR PANEL NOT DETECTED; SARS-CoV-2 -RESP PCR PANEL NOT DETECTED
--- NOTE | 2022-04-26 21:04 | CT Report ---
PROCEDURE: CHEST WO INDICATIONS: pleuritic chest pain; tachy TECHNIQUE: Noncontrast 1mm axial images were acquired from the pulmonary apices to the posterior costophrenic an gles. Axial 5 mm soft tissue kernel reconstructions were performed as well as 8 mm axial MIP and cor onal and sagittal 5 mm reformations. For radiation dose reduction, the following was used: automate d exposure control, adjustment of mA and/or kV according to patient size. COMPARISON: Correlation made to chest CT performed the same day. Comparison made to chest CT FINDINGS: Image quality: Excellent. Lungs and pleura: No acute air space opacities. Stable subpleural right apical nodule. Coarse calcif ication in the superior segment right upper lobe and a juxta fissural position. Solids juxta fissural nodule measuring 9 mm in the right upper/right middle lobe anteriorly. Small ovoid juxta fissural ly mph node in the left midlung. No suspicious or new lung nodules. No pleural effusions or pneumothorax . Central and peripheral airways are patent and normal in caliber. Mediastinum: Heart size is normal. Mild aortic valvular calcification. No pericardial effusion. No mediastinal adenopathy by size criteria. Thoracic aorta and central pulmonary arteries are normal in size. Esophagus is normal in caliber. No hiatal hernia. Bones and chest wall: No suspicious bony lesions. No vertebral body compression fractures. No axil cheo or supraclavicular adenopathy by size criteria. The thyroid is normal in size and there are no incidental findings. Abdomen: Visualized upper abdominal solid organs and bowel loops appear normal in the absence of con trast. IMPRESSION: 1. No evidence of acute cardiopulmonary disease. 2. Bilateral subpleural nodules most consistent with juxta fissural lymph nodes, similar compared to several prior studies. Reviewed by: Angie Mccullough MD on 04/26/2022 9:03 PM PST Approved by: Angie Mccullough MD on 04/26/2022 9:03 PM PST Station ID: [id number]
[2022-04-26] MEDS ORDERED: APIXABAN 5 MG TABLET PO STA (21:10)
[2022-04-26 21:25] VITALS: BP 130/114
== END 2022-04-26 21:26 | disposition left against medical advice (07) ==
LOC: ED 15:14
DX: R07.81 Pleurodynia (principal); R00.0 Tachycardia, unspecified; D72.829 Elevated white blood cell count, unspecified; R79.89 Other specified abnormal findings of blood chemistry; Z20.822 Contact with and (suspected) exposure to COVID-19; I10 Essential (primary) hypertension; J44.9 Chronic obstructive pulmonary disease, unspecified; F17.200 Nicotine dependence, unspecified, uncomplicated; Z53.29 Procedure and treatment not carried out because of patient's decision for other reasons
CPT/HCPCS: 36415; 71046; 71250; 80053; 83690; 83880; 84484; 85025; 85379; 85610; 87633; 93005; 96360; 99284; A9270

== ENCOUNTER 2022-04-28 09:04 | Outpatient (CLI) | payer MEDICARE, MEDICAID | END 2022-04-28 09:05 | disposition critical access hospital (66) | LOC: EMS 09:04 | DX: R06.02 Shortness of breath (principal); R07.9 Chest pain, unspecified | CPT/HCPCS: A0425; A0429 ==

== ENCOUNTER 2022-04-28 09:22 | Emergency (ER) | payer MEDICARE, MEDICAID ==
[2022-04-28] MEDS ORDERED: SODIUM CHLORIDE 0.9% 1,000 ML IV STA (10:04)
[2022-04-28] MEDS ORDERED: ACETAMINOPHEN 325 MG TABLET PO STA (10:05)
[2022-04-28] MEDS ORDERED: iohexoL-300 100 ML VIAL ONE (10:12)
[2022-04-28 10:16] LABS: BASOPHILS # (AUTO) 0.1 10^3/uL (0.0-0.1); BASOPHILS % (AUTO) 0.3 %; EOSINOPHILS # (AUTO) 0.2 10^3/uL (0.0-0.7); EOSINOPHILS % (AUTO) 1.1 %; HCT - HEMATOCRIT 42.4 % (42.0-52.0); HGB - HEMOGLOBIN 13.6 g/dL (14.0-18.0); LYMPHOCYTES # (AUTO) 3.1 10^3/uL (1.5-3.5); LYMPHOCYTES % (AUTO) 20.3 %; MEAN CORPUSCULAR HEMOGLOBIN 29.8 pg (27.0-31.0); MEAN CORPUSCULAR HGB CONC 32.1 g/dL (32.0-36.0); MEAN CORPUSCULAR VOLUME 92.8 fL (80.0-94.0); MEAN PLATELET VOLUME 10.2 fL (7.4-11.4); MONOCYTES # (AUTO) 1.3 10^3/uL (0.0-1.0); MONOCYTES % (AUTO) 8.7 %; NEUTROPHILS # (AUTO) 10.6 10^3/uL (1.5-6.6); NEUTROPHILS % (AUTO) 69.2 %; PLT - PLATELET COUNT 241 10^3/uL (130-450); RED BLOOD COUNT 4.57 10^6/uL (4.70-6.10); RED CELL DISTRIBUTION WIDTH 13.1 % (12.0-15.0); WHITE BLOOD COUNT 15.2 x10^3/uL (4.8-10.8)
--- NOTE | 2022-04-28 10:26 | ED Physician Documentation ---
PD HPI CHEST PAIN - Stated complaint Stated Complaint: CP - Chief complaint Chief Complaint: Cardiac - History obtained from History obtained from: Patient, Other (Prior ED records) - Additional information Additional information: Patient is a 71-year-old male presenting for evaluation of chest pain that is been present since Tuesday and worsening. He reports it hurts when he takes a deep breath. He reports a nonproductive cough and low-grade fevers.He was seen here on Tuesday for the symptoms with testing to include an EKG troponin and D- dimer. He was found to have an elevated D-dimer. Due to tachycardia and his chest pain the provider wanted to evaluate for pulmonary embolism. Patient states that he has an allergy to iodine and contrast and would not allow for a CT scan at that time. They had recommended transfer to facility with VQ scan capabilities as we do not currently have nuclear med abilities.Patient left AGAINST MEDICAL ADVICE. Patient reports having continued symptoms. I did review his records and he was seen here in 2018 for chest pain and at that time had a CT angio of his chest. He did not have any complications. The reason indicated for that study also states that patient has had a prior CT scans and IV contrast with no issue.I have reviewed this with the patient and feel that He is able to receive IV contrast despite his listed iodine allergy as he has previously had CTs with IV contrast here and no pretreatment or complication.Patient is also agreeable to this planned. Review of Systems Constitutional: denies: Fever Cardiac: reports: Chest pain / pressure Respiratory: reports: Cough GI: denies: Abdominal Pain : denies: Dysuria Musculoskeletal: denies: Back pain, Extremity swelling Neurologic: denies: Headache PD PAST MEDICAL HISTORY - Past Medical History Cardiovascular: None, Hypertension Respiratory: COPD Endocrine/Autoimmune: None GI: GERD, Hepatitis : Benign prostate hypertrophy HEENT: Other Psych: Depression, Anxiety Musculoskeletal: Osteoarthritis, Chronic back pain Derm: None - Past Surgical History Past Surgical History: Yes General: Colonoscopy - Present Medications Home Medications: Ambulatory Orders Medication Instructions Recorded Confirmed Buspirone HCl 10 mg PO DAILY 08/30/13 11/25/14 Gabapentin 400 mg PO TID 08/30/13 11/25/14 Albuterol Sulfate [Proair Hfa] 1 puffs IH BID 11/22/14 11/25/14 Doxazosin [Cardura] 4 mg DAILY 11/23/17 11/23/17 Hydrocodone/Acetaminophen 1 - 2 each PO Q6H PRN #7 tablet 11/23/17 [Hydrocodon-Acetaminophen 5-325] Ipratropium/Albuterol [Combivent 11/23/17 Respimat] Oxybutynin [Ditropan] 15 mg DAILY 11/23/17 11/23/17 buPROPion [Wellbutrin Sr] 150 mg DAILY 11/23/17 11/23/17 raNITIdine [Zantac] 150 mg 11/23/17 Cyclobenzaprine [Flexeril] 10 mg PO TID PRN #20 tablet 04/16/21 Apixaban [Eliquis] 2.5 mg PO BID #14 tablet 04/26/22 - Allergies Allergies/Adverse Reactions: Allergies Allergy/AdvReac Type Severity Reaction Status Date / Time mercury (elemental) Allergy Intermediate Hives Verified 04/16/21 13:10 [Mercury (Elemental)] iodine AdvReac Intermediate Anaphylaxis Verified 04/28/22 09:29 - Social History Does the pt smoke?: Yes Smoking Status: Current every day smoker Does the pt drink ETOH?: No Does the pt have substance abuse?: No PD ED PE NORMAL - General General: Alert and oriented X 3 Results - Vitals Vitals: Vital Signs - 24 hr 04/28/22 04/28/22 04/28/22 09:29 11:34 12:23 Temperature 37.9 C Heart Rate 121 H 95 95 Respiratory 16 15 12 Rate Blood Pressure 124/91 H 135/83 H 138/93 H O2 Saturation 99 100 100 04/28/22 12:30 Temperature 37.1 C Heart Rate Respiratory Rate Blood Pressure O2 Saturation Oxygen O2 Source Room air - EKG (time done) 1014 Rate: Rate (enter#) (97) Rhythm: NSR Ischemia: No: ST elevation c/w ischemia Compare to prior EKG: Unchanged from prior EKG - Labs Labs: Laboratory Tests 04/28/22 04/28/22 04/28/22 10:11 10:11 10:11 WBC 15.2 H RBC 4.57 L Hgb 13.6 L Hct 42.4 MCV 92.8 MCH 29.8 MCHC 32.1 RDW 13.1 Plt Count 241 MPV 10.2 Neut # (Auto) 10.6 H Lymph # (Auto) 3.1 [place] # (Auto) 1.3 H Eos # (Auto) 0.2 Baso # (Auto) 0.1 Absolute Nucleated RBC 0.00 Nucleated RBC % 0.0 Sodium 140 Potassium 4.1 Chloride 103 Carbon Dioxide 29 Anion Gap 8.0 BUN 13 Creatinine 0.9 Estimated GFR (MDRD) 101 Glucose 122 H Calcium 9.7 Total Bilirubin 1.0 AST 23 ALT 20 Alkaline Phosphatase 66 Troponin I High Sens 12.8 Total Protein 7.7 Albumin 3.8 Globulin 3.9 Albumin/Globulin Ratio 1.0 PD Medical Decision Making - ED course Complexity details: reviewed results, re-evaluated patient, d/w patient ED course: Patient presenting for evaluation of chest pain that is worse when he takes a deep breath. He was seen for the same 2 days ago and held at an elevated D- dimer. He left prior to Having any imaging done to evaluate for pulmonary embolism. During that encounter it seemed that he indicated he was not able to receive CT dye due to a contrast. However upon my chart review it seems that patient did have a CT angio 5 years ago without any premedication and did not have any complications from this. I did review my recommendations to have a CT angio with the patient and he is agreeable at this time. Patient tolerated contrast without any issues. CT was reviewed And is negative for pulmonary embolism. He additionally does not have a lower extremity swelling or pain to suggest a DVT. There were incidental nodules which were also seen 2 days ago that I also reviewed with the patient.His EKG is negative for signs of acute ischemia and his high-sensitivity troponin is negative. His symptoms have been constant for 5 days and I feel are atypical for ACS or dissection.He does have a low-grade fever. His respiratory swab was -2 days ago. I also do not see signs of pneumonia. He likely has a viral illness and encouraged continued supportive care. Patient is advised on concerning symptoms to return for. He is ambulatory without any pain at discharge. Departure - Departure Disposition: 01 Home, Self Care Clinical Impression: Chest pain Condition: Stable Instructions: ED Chest Pain Atypical Unkn Cause Comments: The exact cause of your chest pain is unclear. You do have a low-grade fever here and could be coming down with a illness.Your cardiac marker is negative and does not show signs of a heart attack. We did obtain a CT scan of your chest to evaluate for a blood clot and it is negative for a blood clot. You do have nodules in your lung that were also seen on a scan recently. These are unchanged. I would recommend close follow-up with your primary care doctor. Please continue to stay hydrated. If your symptoms worsen or change please consider reevaluation. Discharge Date/Time: 04/28/22 12:38
[2022-04-28 10:31] LABS: ALBUMIN 3.8 g/dL (3.2-5.5); CALCIUM 9.7 mg/dL (8.5-10.3); CREATININE 0.9 mg/dL (0.6-1.2); POTASSIUM 4.1 mmol/L (3.5-5.0); TOTAL PROTEIN 7.7 g/dL (6.7-8.2)
--- NOTE | 2022-04-28 11:01 | CT Report ---
PROCEDURE: CT chest angiogram with contrast INDICATIONS: Chest pain CONTRAST: 80ml Omnipaque 300 TECHNIQUE: After the administration of intravenous contrast, 2 mm axial images were acquired from the pulmonary apices to the posterior costophrenic angles during the arterial phase. In addition, 1 mm lung kernel and 5 mm soft tissue kernel reconstructions were performed. coronal oblique maximum intensity projec tion (MIP) reformats, 8 mm axial MIP, and 5 mm coronal and sagittal MPR reformats were then performed through the thorax. For radiation dose reduction, the following was used: automated exposure control , adjustment of mA and/or kV according to patient size. COMPARISON: 04/26/2022 FINDINGS: Image quality: Excellent. Pulmonary arteries: Pulmonary arteries are normal in size, and demonstrate no intraluminal filling d efects to suggest central pulmonary embolism. Lungs and pleura: Lungs are clear. No pleural effusions or pneumothorax. Central and peripheral ai rways are patent. Previously described nodules bilaterally remain unchanged Mediastinum: Heart size is normal, without pericardial effusion. No mediastinal or hilar adenopathy . Thoracic aorta is normal in caliber and enhancement. Esophagus is normal in caliber, without hiat al hernia. Bones and chest wall: No suspicious bony lesions. Ribs and thoracic spine appear intact throughout. No axillary or supraclavicular adenopathy. The thyroid is normal in size and there are no incident al findings. Abdomen: Visualized upper abdominal solid organs appear normal in the early arterial phase of enhanc ement. IMPRESSION: No evidence of pulmonary embolism, or aortic aneurysm. Bilateral juxta fissural nodules, stable from the prior exam Reviewed by: Joss Ibrahim MD on 04/28/2022 10:00 AM [facility] Approved by: Joss Ibrahim MD on 04/28/2022 10:00 AM [facility] Station ID: [id number]
[2022-04-28 12:24] VITALS: BP 138/93
[2022-04-28] MEDS ORDERED: iohexoL-300 100 ML VIAL IVP ONE (14:13)
== END 2022-04-28 12:38 | disposition home or self-care (01) ==
LOC: EDUNIT# → ED 09:22
DX: R07.9 Chest pain, unspecified (principal); I10 Essential (primary) hypertension; F17.200 Nicotine dependence, unspecified, uncomplicated
CPT/HCPCS: 36415; 71275; 80053; 84484; 85025; 93005; 96360; 99284; A9270; Q9967

== ENCOUNTER 2022-05-03 21:10 | Outpatient (CLI) | payer MEDICARE, MEDICAID | END 2022-05-03 23:59 | disposition critical access hospital (66) | LOC: EMS 21:10 | DX: R41.82 Altered mental status, unspecified (principal); R50.9 Fever, unspecified; R33.9 Retention of urine, unspecified; R00.0 Tachycardia, unspecified; I10 Essential (primary) hypertension | CPT/HCPCS: A0425; A0427 ==

== ENCOUNTER 2022-05-03 21:52 | Inpatient (IN) | payer MEDICARE, MEDICAID ==
--- NOTE | 2022-05-03 22:03 | ED Physician Documentation ---
PD HPI FEVER - Stated complaint Stated Complaint: SEPSIS - Chief complaint Chief Complaint: Neuro - History obtained from History obtained from: EMS - History of Present Illness Recently seen: Emergency Dept - Additional information Additional information: Patient is brought in by ambulance for altered mental status. I am unable to obtain any HPI/ROS from patient due to altered mental status. HPI is from medic report. Medics were called to patient's place of residence for AMS, fever. Patient's spouse called 911. Patient spouse indicated to EMS that patient was exhibiting an altered mental status all day today, as well as a fever for over a week. Patient's spouse says patient had been c/o discomfort with urination and sensation of having to urinate but only small amount UO when he would try to urinate EMS found patient to have a temperature of 102.4, heart rate 110s. BP was 176/104, FSBS 149. 99% pulse ox on room air. Review of Systems Unable to obtain: AMS PD PAST MEDICAL HISTORY - Past Medical History Cardiovascular: None, Hypertension Respiratory: COPD Endocrine/Autoimmune: None GI: GERD, Hepatitis : Benign prostate hypertrophy HEENT: Other Psych: Depression, Anxiety Musculoskeletal: Osteoarthritis, Chronic back pain Derm: None - Past Surgical History Past Surgical History: Yes General: Colonoscopy - Present Medications Home Medications: Ambulatory Orders Medication Instructions Recorded Confirmed Buspirone HCl 10 mg PO BID 08/30/13 05/04/22 Gabapentin 400 mg PO TID 08/30/13 05/04/22 Albuterol Sulfate [Proair Hfa] 1 puffs IH BID 11/22/14 11/25/14 Doxazosin [Cardura] 4 mg PO DAILY 11/23/17 05/04/22 Hydrocodone/Acetaminophen 1 - 2 each PO Q6H PRN #7 tablet 11/23/17 [Hydrocodon-Acetaminophen 5-325] Ipratropium/Albuterol [Combivent 11/23/17 Respimat] Oxybutynin [Ditropan] 15 mg PO DAILY 11/23/17 05/04/22 buPROPion [Wellbutrin Sr] 150 mg PO BID 11/23/17 05/04/22 raNITIdine [Zantac] 150 mg 11/23/17 Cyclobenzaprine [Flexeril] 10 mg PO TID PRN #20 tablet 04/16/21 Apixaban [Eliquis] 2.5 mg PO BID #14 tablet 04/26/22 Aspirin EC [Ecotrin] 81 mg PO DAILY 05/04/22 05/04/22 Benazepril HCl [Lotensin] 40 mg PO DAILY 05/04/22 05/04/22 Ondansetron [Zuplenz] 8 mg PO DAILY PRN 05/04/22 05/04/22 Pantoprazole Sodium 20 mg PO DAILY 05/04/22 05/04/22 - Allergies Allergies/Adverse Reactions: Allergies Allergy/AdvReac Type Severity Reaction Status Date / Time mercury (elemental) Allergy Intermediate Hives Verified 05/03/22 21:57 [Mercury (Elemental)] iodine AdvReac Intermediate Anaphylaxis Verified 05/03/22 21:57 - Social History Does the pt smoke?: Yes Smoking Status: Current every day smoker Does the pt drink ETOH?: No Does the pt have substance abuse?: No PD ED PE NORMAL - Vitals Vital signs reviewed: Yes - General General: No acute distress, Well developed/nourished, Other (During H+P, he is at times awake, drowsy other times. Poor eye contact, follows no commands. Does not answer nearly any questions ("yes" to tenderness when I palpate abdomen)) - HEENT HEENT: Atraumatic, PERRL, EOMI, Other (dry mucous membranes) - Neck Neck: Supple, no meningeal sign - Cardiac Cardiac: No murmur - Respiratory Respiratory: No respiratory distress, Clear bilaterally - Abdomen Abdomen: Soft, Non distended, Other (appears to react (wincing, voluntary guarding) with palpation of left side of abdomen) - Derm Derm: Normal color, Warm and dry, No rash - Extremities Extremities: No deformity, No tenderness to palpate, No edema PD ED PE EXPANDED - Cardiac Cardiac: Regular Rate, Tachy Results - Vitals Vitals: Vital Signs - 24 hr 05/03/22 05/03/22 05/03/22 21:57 22:00 22:30 Temperature 39.0 C H 39.0 C H Heart Rate 114 H 114 H 116 H Respiratory 20 20 20 Rate Blood Pressure 178/104 H 178/104 H 160/112 H O2 Saturation 97 97 99 05/03/22 05/04/22 05/04/22 23:19 00:15 00:30 Temperature 39.3 C H Heart Rate 112 H 108 H 101 H Respiratory 26 H 32 H 30 H Rate Blood Pressure 168/109 H 156/98 H 142/96 H O2 Saturation 98 100 100 05/04/22 05/04/22 05/04/22 01:10 01:30 02:00 Temperature 38.1 C H Heart Rate 98 98 103 H Respiratory 31 H 30 H 29 H Rate Blood Pressure 142/96 H 140/85 H 148/91 H O2 Saturation 100 99 99 05/04/22 05/04/22 05/04/22 02:30 03:00 03:30 Temperature 37.6 C Heart Rate 98 96 99 Respiratory 31 H 24 25 H Rate Blood Pressure 130/92 H 150/93 H 151/93 H O2 Saturation 99 100 99 Oxygen O2 Source Room air - EKG (time done) No standard instances Rate: Rate (enter#) (112) Rhythm: Sinus tachycardia [place]: Normal Intervals: Normal [place] QRS: LVH Ischemia: Non specific changes (minimal ST depressions V4-V6, noted on previous EKGs (04/26/22, 04/28/22)) - Labs Labs: Laboratory Tests 05/02/22 05/03/22 05/03/22 22:20 22:20 22:20 WBC 16.9 H RBC 4.67 L Hgb 13.5 L Hct 43.0 MCV 92.1 MCH 28.9 MCHC 31.4 L RDW 12.6 Plt Count 402 MPV 9.5 Neut # (Auto) 14.7 H Lymph # (Auto) 0.7 L [place] # (Auto) 1.4 H Eos # (Auto) 0.0 Baso # (Auto) 0.0 Absolute Nucleated RBC 0.00 Nucleated RBC % 0.0 PT 17.5 H INR 1.6 H APTT 26.2 Sodium Potassium Chloride Carbon Dioxide Anion Gap BUN Creatinine Estimated GFR (MDRD) Glucose Lactic Acid Calcium Total Bilirubin AST ALT Alkaline Phosphatase Total Protein Albumin Globulin Albumin/Globulin Ratio Lipase Procalcitonin TSH 0.88 Urine Color Urine Clarity Urine pH Ur Specific [place] Urine Protein Urine Glucose (UA) Urine Ketones Urine Occult Blood Urine Nitrite Urine Bilirubin Urine Urobilinogen Ur Leukocyte Esterase Urine RBC Urine WBC Ur Squamous Epith Cells Urine Bacteria Urine Culture Comments Nasal Adenovirus (PCR) Nasal B. parapertussis DNA (PCR) Nasal Coronavir 229E PCR Nasal Coronavir HKU1 PCR Nasal Coronavir NL63 PCR Nasal Coronavir OC43 PCR Nasal Enterovir/Rhinovir PCR Nasal Influenza B PCR Nasal Influenza A PCR Nasal Parainfluen 1 PCR Nasal Parainfluen 2 PCR Nasal Parainfluen 3 PCR Nasal Parainfluen 4 PCR Nasal RSV (PCR) Nasal B.pertussis DNA PCR Nasal C.pneumoniae (PCR) [place] Human Metapneumo PCR Nasal M.pneumoniae (PCR) Nasal SARS-CoV-2 (PCR) Urine Opiates Screen Ur Oxycodone Screen Urine Methadone Screen Ur Propoxyphene Screen Ur Barbiturates Screen Ur Tricyclics Screen Ur Phencyclidine Scrn Ur Amphetamine Screen U Methamphetamines Scrn U Benzodiazepines Scrn Urine Cocaine Screen U Cannabinoids Screen 05/03/22 05/03/22 05/03/22 22:20 22:20 22:20 WBC RBC Hgb Hct MCV MCH MCHC RDW Plt Count MPV Neut # (Auto) Lymph # (Auto) [place] # (Auto) Eos # (Auto) Baso # (Auto) Absolute Nucleated RBC Nucleated RBC % PT INR APTT Sodium 131 L Potassium 3.7 Chloride 91 L Carbon Dioxide 24 Anion Gap 16.0 H BUN 15 Creatinine 0.9 Estimated GFR (MDRD) 101 Glucose 155 H Lactic Acid 2.9 H Calcium 8.8 Total Bilirubin 1.2 H AST 42 ALT 50 Alkaline Phosphatase 102 Total Protein 8.0 Albumin 3.5 Globulin 4.5 H Albumin/Globulin Ratio 0.8 L Lipase 24 Procalcitonin TSH Urine Color Urine Clarity Urine pH Ur Specific [place] Urine Protein Urine Glucose (UA) Urine Ketones Urine Occult Blood Urine Nitrite Urine Bilirubin Urine Urobilinogen Ur Leukocyte Esterase Urine RBC Urine WBC Ur Squamous Epith Cells Urine Bacteria Urine Culture Comments Nasal Adenovirus (PCR) NOT DETECTED Nasal B. parapertussis DNA (PCR) NOT DETECTED Nasal Coronavir 229E PCR NOT DETECTED Nasal Coronavir HKU1 PCR NOT DETECTED Nasal Coronavir NL63 PCR NOT DETECTED Nasal Coronavir OC43 PCR NOT DETECTED Nasal Enterovir/Rhinovir PCR NOT DETECTED Nasal Influenza B PCR NOT DETECTED Nasal Influenza A PCR NOT DETECTED Nasal Parainfluen 1 PCR NOT DETECTED Nasal Parainfluen 2 PCR NOT DETECTED Nasal Parainfluen 3 PCR NOT DETECTED Nasal Parainfluen 4 PCR NOT DETECTED Nasal RSV (PCR) NOT DETECTED Nasal B.pertussis DNA PCR NOT DETECTED Nasal C.pneumoniae (PCR) NOT DETECTED [place] Human Metapneumo PCR NOT DETECTED Nasal M.pneumoniae (PCR) NOT DETECTED Nasal SARS-CoV-2 (PCR) NOT DETECTED Urine Opiates Screen Ur Oxycodone Screen Urine Methadone Screen Ur Propoxyphene Screen Ur Barbiturates Screen Ur Tricyclics Screen Ur Phencyclidine Scrn Ur Amphetamine Screen U Methamphetamines Scrn U Benzodiazepines Scrn Urine Cocaine Screen U Cannabinoids Screen 05/03/22 05/03/22 05/03/22 22:20 23:15 23:15 WBC RBC Hgb Hct MCV MCH MCHC RDW Plt Count MPV Neut # (Auto) Lymph # (Auto) [place] # (Auto) Eos # (Auto) Baso # (Auto) Absolute Nucleated RBC Nucleated RBC % PT INR APTT Sodium Potassium Chloride Carbon Dioxide Anion Gap BUN Creatinine Estimated GFR (MDRD) Glucose Lactic Acid Calcium Total Bilirubin AST ALT Alkaline Phosphatase Total Protein Albumin Globulin Albumin/Globulin Ratio Lipase Procalcitonin 1.37 H TSH Urine Color DARK YELLOW Urine Clarity CLEAR Urine pH 7.0 Ur Specific [place] 1.020 Urine Protein 30 H Urine Glucose (UA) NEGATIVE Urine Ketones NEGATIVE Urine Occult Blood TRACE-INTA Urine Nitrite NEGATIVE Urine Bilirubin NEGATIVE Urine Urobilinogen 2 H Ur Leukocyte Esterase NEGATIVE Urine RBC 0-5 Urine WBC 0-3 Ur Squamous Epith Cells NONE SEEN Urine Bacteria Rare Urine Culture Comments NOT INDICATED Nasal Adenovirus (PCR) Nasal B. parapertussis DNA (PCR) Nasal Coronavir 229E PCR Nasal Coronavir HKU1 PCR Nasal Coronavir NL63 PCR Nasal Coronavir OC43 PCR Nasal Enterovir/Rhinovir PCR Nasal Influenza B PCR Nasal Influenza A PCR Nasal Parainfluen 1 PCR Nasal Parainfluen 2 PCR Nasal Parainfluen 3 PCR Nasal Parainfluen 4 PCR Nasal RSV (PCR) Nasal B.pertussis DNA PCR Nasal C.pneumoniae (PCR) [place] Human Metapneumo PCR Nasal M.pneumoniae (PCR) Nasal SARS-CoV-2 (PCR) Urine Opiates Screen POSITIVE H Ur Oxycodone Screen NEGATIVE Urine Methadone Screen NEGATIVE Ur Propoxyphene Screen NEGATIVE Ur Barbiturates Screen NEGATIVE Ur Tricyclics Screen NEGATIVE Ur Phencyclidine Scrn NEGATIVE Ur Amphetamine Screen NEGATIVE U Methamphetamines Scrn NEGATIVE U Benzodiazepines Scrn NEGATIVE Urine Cocaine Screen NEGATIVE U Cannabinoids Screen POSITIVE H 05/04/22 03:03 WBC RBC Hgb Hct MCV MCH MCHC RDW Plt Count MPV Neut # (Auto) Lymph # (Auto) [place] # (Auto) Eos # (Auto) Baso # (Auto) Absolute Nucleated RBC Nucleated RBC % PT INR APTT Sodium Potassium Chloride Carbon Dioxide Anion Gap BUN Creatinine Estimated GFR (MDRD) Glucose Lactic Acid 1.8 Calcium Total Bilirubin AST ALT Alkaline Phosphatase Total Protein Albumin Globulin Albumin/Globulin Ratio Lipase Procalcitonin TSH Urine Color Urine Clarity Urine pH Ur Specific [place] Urine Protein Urine Glucose (UA) Urine Ketones Urine Occult Blood Urine Nitrite Urine Bilirubin Urine Urobilinogen Ur Leukocyte Esterase Urine RBC Urine WBC Ur Squamous Epith Cells Urine Bacteria Urine Culture Comments Nasal Adenovirus (PCR) Nasal B. parapertussis DNA (PCR) Nasal Coronavir 229E PCR Nasal Coronavir HKU1 PCR Nasal Coronavir NL63 PCR Nasal Coronavir OC43 PCR Nasal Enterovir/Rhinovir PCR Nasal Influenza B PCR Nasal Influenza A PCR Nasal Parainfluen 1 PCR Nasal Parainfluen 2 PCR Nasal Parainfluen 3 PCR Nasal Parainfluen 4 PCR Nasal RSV (PCR) Nasal B.pertussis DNA PCR Nasal C.pneumoniae (PCR) [place] Human Metapneumo PCR Nasal M.pneumoniae (PCR) Nasal SARS-CoV-2 (PCR) Urine Opiates Screen Ur Oxycodone Screen Urine Methadone Screen Ur Propoxyphene Screen Ur Barbiturates Screen Ur Tricyclics Screen Ur Phencyclidine Scrn Ur Amphetamine Screen U Methamphetamines Scrn U Benzodiazepines Scrn Urine Cocaine Screen U Cannabinoids Screen - Rads (name of study) CTH Radiology: Prelim report reviewed, EMP read indepedently, See rad report chest xray Radiology: Prelim report reviewed, EMP read indepedently, See rad report CT A/P with IV contrast Radiology: Prelim report reviewed, EMP read indepedently, See rad report Procedures - Lumbar Puncture - Major Position: Laying left side Location: L3-L4, L4-L5, Midline approach Anesthesia: Local lidocaine Other: Other (UNABLE TO OBTAIN CSF ("DRY TAP")) PD Medical Decision Making - ED course Complexity details: reviewed old records, reviewed results, re-evaluated patient, considered differential ED course: Patient presents with altered mental status and fever. His temperature in the emergency department at triage is 39 Celsius. The patient was treated and released from this emergency department 1 week ago and again 5 days ago; both of these visits involved the chief complaint of chest pain. He had no concerning nor diagnostic findings on either of these visits with the notable exception of high d-dimer on initial visit. On the initial visit, he had a work-up that included a chest x-ray as well as a noncontrast CT of the chest; the ED practitioner's note indicates that the recommendation was for a CTA of the chest, but patient declined, saying that he has an anaphylactic reaction to intravenous contrast. The ED practitioner then offered to endeavor to transfer the patient to another facility so that a VQ scan could be undertaken. Patient declined offer, and instead opted to leave AGAINST MEDICAL ADVICE. Prior to leaving, there was a discussion regarding starting patient on a short course of once per day Eliquis and patient was agreeable to this. Patient returned to this emergency department 2 days after this first visit due to ongoing chest pain with notable pleuritic component and mild dyspnea. Repeat tests included CBC which showed no change in the white blood cell count (15.2), normal high-sensitivity troponin. The ED practitioner on this second visit discussed with the patient that she noted the patient had previously had a CTA of his chest a few years ago at our facility and there was no note of any adverse reaction. The patient thus was agreeable to having CTA of the chest performed on this second visit and there were no remarkable findings on this study including no evidence of pulmonary embolism, aortic dissection, infiltrate/pneumonia. On stephanie's ED testing, his white blood cell count is elevated (16.9). His INR is 1.6. Of note, EMS brought patient's medications to the emergency department along with the patient, and had a do not see a prescription for Eliquis. Additionally, I am able to see patient's medication fills in [employer], and I do not see any prescription for Eliquis that has been filled, and a do see a prescription for benzapril which was filled 3 days after he was seen on the first visit. Given this information, it would appear that patient did not fill the prescription for Eliquis. Other notable test results on stephanie's work-up include lactate of 2.9. He has normal BUN and creatinine (15, 0.9), and his urine drug screen is positive for opiates and cannabinoids. Patient's prescription medications do include hydrocodone.Patient's urinalysis has no remarkable findings, and no findings that would suggest urinary tract infection. Imaging studies undertaken on stephanie's emergency department visit include CT head, chest x-ray, and CT of the abdomen and pelvis with intravenous contrast. There are no concerning or diagnostic findings on any of the studies, including no findings that would explain patient's altered mental status, fever. I do note significant bladder distention on the CT of the abdomen and pelvis, and a [place] is placed with rapid return of over 750 mL of clear, yellow urine. During patient's ER stay, he exhibited fluctuating levels of activity. At times, he was appearing to be resting, even somnolent, in bed. At other times, he would sit himself up and tried to get over the railing on the side of the bed or else tried to scoot down towards the end of the bed.He was not able to provide any coherent answers to any of my questions except the single word "yes" when I examine his abdomen and ask if he is having pain when I do so. For most of my q uestions, he either provides no answer or makes grunting noises. He very occasionally responds to a few of my questions with unintelligible words and sentences. He is given intravenous acetaminophen (Ofirmev) in the emergency department early in his stay for his fever, and he eventually defervesced. While this did not result in improvement in his mentation, note that he also required recurrent doses of benzodiazepines during his stay to prevent him from removing medical equipment such as intravenous access and monitoring equipment. Medications used for this purpose included lorazepam as well as midazolam. Patient meets criteria for sepsis rather early in his stay, blood cultures are obtained, and he is given triple antibiotics intravenously (vancomycin, cefepime, and metronidazole). I attempted lumbar puncture but was unsuccessful in obtaining CSF for testing ("dry tap"). Lumbar puncture was attempted at both the L3-L4 level as well as the L4-L5 level. I discussed the case with the on-call telehealth physician who accepts the patient to hospitalist service. Departure - Departure Disposition: [facility] DC/Xfer Clinical Impression: Altered mental status Qualifiers: Altered mental status type: unspecified Qualified Code(s): R41.82 - Altered mental status, unspecified Sepsis Qualifiers: Sepsis type: sepsis due to unspecified organism Sepsis acute organ dysfunction status: unspecified Qualified Code(s): A41.9 - Sepsis, unspecified organism Condition: Stable Discharge Date/Time: 05/04/22 05:24
[2022-05-03] MEDS ORDERED: ACETAMINOPHEN 1,000 MG/100 ML 1,000 MG/100 ML BAG IV ONE (22:24)
[2022-05-03 22:26] LABS: BASOPHILS % (AUTO) 0.2 %; HGB - HEMOGLOBIN 13.5 g/dL (14.0-18.0); LYMPHOCYTES # (AUTO) 0.7 10^3/uL (1.5-3.5); LYMPHOCYTES % (AUTO) 4.3 %; MEAN CORPUSCULAR HEMOGLOBIN 28.9 pg (27.0-31.0); MEAN CORPUSCULAR HGB CONC 31.4 g/dL (32.0-36.0); MEAN CORPUSCULAR VOLUME 92.1 fL (80.0-94.0); MEAN PLATELET VOLUME 9.5 fL (7.4-11.4); MONOCYTES # (AUTO) 1.4 10^3/uL (0.0-1.0); MONOCYTES % (AUTO) 8.1 %; NEUTROPHILS # (AUTO) 14.7 10^3/uL (1.5-6.6); NEUTROPHILS % (AUTO) 86.9 %; PLT - PLATELET COUNT 402 10^3/uL (130-450); RED BLOOD COUNT 4.67 10^6/uL (4.70-6.10); RED CELL DISTRIBUTION WIDTH 12.6 % (12.0-15.0); WHITE BLOOD COUNT 16.9 x10^3/uL (4.8-10.8)
[2022-05-03 22:32] LABS: INR 1.6 (0.8-1.2); PT - PROTHROMBIN TIME 17.5 secs (9.9-12.6)
[2022-05-03 22:39] LABS: PARTIAL THROMBOPLASTIN TIME 26.2 secs (24.9-33.3)
[2022-05-03 22:41] LABS: ALBUMIN 3.5 g/dL (3.2-5.5); ALBUMIN/GLOBULIN RATIO 0.8 (1.0-2.2); BILIRUBIN,TOTAL 1.2 mg/dL (0.2-1.0); CALCIUM 8.8 mg/dL (8.5-10.3); CREATININE 0.9 mg/dL (0.6-1.2); POTASSIUM 3.7 mmol/L (3.5-5.0)
[2022-05-03] MEDS ORDERED: SODIUM CHLORIDE 0.9% 1,000 ML IV STA ×2 (23:13→23:27)
--- NOTE | 2022-05-03 23:15 | XRAY Report ---
PROCEDURE: Chest 1 View X-Ray INDICATIONS: fever TECHNIQUE: One view of the chest was acquired. COMPARISON: Two-view chest 04/26/2022. FINDINGS: Surgical changes and devices: None. Lungs and pleura: No pleural effusions or pneumothorax. Lungs are mildly abnormal with crowding of the bronchovascular markings associated with reduced inspiratory volume. Mediastinum: Mediastinal contours appear normal. Heart size is normal. Bones and chest wall: No suspicious bony lesions. Overlying soft tissues appear unremarkable. IMPRESSION: No focal pneumonia is seen. Mild crowding of the bronchovascular markings due to reduced inspiratory volume. Reviewed by: Henry Mckeon MD on 05/03/2022 11:13 PM PST Approved by: Henry Mckeon MD on 05/03/2022 11:13 PM PST Station ID: [id number]
[2022-05-03 23:19] LABS: B. PARAPERTUSSIS- RESP PCR PAN NOT DETECTED; B. PERTUSSIS- RESP PCR PANEL NOT DETECTED; C. PNEUMONIAE- RESP PCR PANEL NOT DETECTED; CORONAVIRUS 229E-RESP PCR NOT DETECTED; CORONAVIRUS HKU1-RESP PCR NOT DETECTED; CORONAVIRUS NL63-RESP PCR NOT DETECTED; CORONAVIRUS OC43-RESP PCR NOT DETECTED; HUMAN METAPNEUMOVIRUS NOT DETECTED; INFLUENZA A- RESP PCR PANEL NOT DETECTED; INFLUENZA B - RESP PCR PANEL NOT DETECTED; M. PNEUMONIAE- RESP PCR PANEL NOT DETECTED; PARAINFLUENZA VIRUS 1 NOT DETECTED; PARAINFLUENZA VIRUS 2 NOT DETECTED; PARAINFLUENZA VIRUS 3 NOT DETECTED; PARAINFLUENZA VIRUS 4 NOT DETECTED; RHINOVIRUS/ENTEROVIRUS NOT DETECTED; RSV- RESP PCR PANEL NOT DETECTED; SARS-CoV-2 -RESP PCR PANEL NOT DETECTED
[2022-05-03] MEDS ORDERED: CEFEPIME 2 GM in SODIUM CHLORIDE 0.9% MINIBAG 100 ML IV STA (23:19)
[2022-05-03] MEDS ORDERED: VANCOMYCIN INJ 1.25 GM in SODIUM CHLORIDE 0.9% 250 ML IV STA (23:19)
[2022-05-03] MEDS ORDERED: metroNIDAZOLE 500 MG/100 ML 500 MG/100 ML BAG IV STA (23:19)
[2022-05-03] MEDS ORDERED: iohexoL-300 100 ML VIAL ONE (23:24)
[2022-05-03] MEDS ORDERED: VANCOMYCIN 1 GM VIAL ONE (23:26)
[2022-05-03] MEDS ORDERED: LORazepam 2 MG/ML VIAL IVP STA (23:27)
[2022-05-03 23:36] LABS: BILIRUBIN,URINE NEGATIVE (NEGATIVE); GLUCOSE, URINE (UA) NEGATIVE (NEGATIVE); KETONES,URINE (UA) NEGATIVE (NEGATIVE); LEUKOCYTE ESTERASE, URINE NEGATIVE (NEGATIVE); NITRITE,URINE NEGATIVE (NEGATIVE); OCCULT BLOOD,URINE TRACE-INTA (NEGATIVE); PROTEIN,URINE 30 mg/dL (NEGATIVE); UROBILINOGEN,URINE 2 E.U./dL (NORMAL)
[2022-05-03 23:39] LABS: CLARITY,URINE CLEAR (CLEAR)
[2022-05-03 23:43] LABS: BACTERIA,URINE Rare /HPF (None Seen); RBC,URINE 0-5 /HPF (0-5); SQUAMOUS EPITHELIAL CELL,UR NONE SEEN (<= Few); WBC,URINE 0-3 /HPF (0-3)
[2022-05-03] MEDS ORDERED: MIDAZOLAM 2 MG/2 ML VIAL IVP STA (23:58)
[2022-05-04] MEDS ORDERED: MIDAZOLAM 2 MG/2 ML VIAL ONE (00:01)
--- NOTE | 2022-05-04 00:32 | CT Report ---
PROCEDURE: HEAD WO INDICATIONS: AMS TECHNIQUE: Noncontrast 4.5 mm thick angled axial sections acquired from the foramen magnum to the vertex. For r adiation dose reduction, the following was used: automated exposure control, adjustment of mA and/or kV according to patient size. COMPARISON: None. FINDINGS: Image quality: Excellent. CSF spaces: Basal cisterns are patent. No extra-axial fluid collections. Ventricles are normal in size and shape. Brain: No midline shift. No intracranial masses or hemorrhage. Fan-white matter interface is norm al. Skull and face: Calvarium and visualized facial bones are intact, without suspicious lesions. Sinuses: Visualized sinuses and mastoids are clear. IMPRESSION: Normal for age, source of altered mental status is not found. Reviewed by: Henry Mckeon MD on 05/04/2022 12:31 AM PST Approved by: Henry Mckeon MD on 05/04/2022 12:31 AM PST Station ID: [id number]
[2022-05-04] MEDS ORDERED: iohexoL-300 100 ML VIAL IVP ONE (00:57)
[2022-05-04 01:17] LABS: MUDS CUTOFF CONCENTRATIONS CUTOFF CONC BELOW:
--- NOTE | 2022-05-04 01:27 | CT Report ---
PROCEDURE: ABDOMEN/PELVIS W INDICATIONS: fever, AMS, abd. tenderness on exam CONTRAST: Omni 300 100ml TECHNIQUE: After the administration of nonionic contrast, 5 mm thick sections acquired from the diaphragms to th e symphysis. 5 mm thick coronal and sagittal reformats were acquired. For radiation dose reduction, the following was used: automated exposure control, adjustment of mA and/or kV according to patient size. COMPARISON: CT abdomen/pelvis 11/23/2017. FINDINGS: Image quality: Excellent. ABDOMEN: Lung bases: Lung bases are clear. Heart size is normal. Solid organs: Liver and spleen are normal in size and enhancement. Gallbladder appears normal Bili juan system is non dilated. Pancreas enhances normally. No adrenal nodules. Kidneys demonstrate nor mal size and enhancement, without hydronephrosis. Peritoneum and bowel: Bowel loops demonstrate normal wall thickness and caliber. No free fluid or a ir. Nodes and vessels: No retroperitoneal or mesenteric adenopathy by size criteria. Aorta and inferior vena cava are normal in size. Miscellaneous: No ventral hernias. PELVIS: Genitourinary: Bladder wall thickness is normal. Miscellaneous: No inguinal hernias or adenopathy. Bones: No suspicious bony lesions. No vertebral body compression fractures. IMPRESSION: No acute disease found, no source of fever is identified. Reviewed by: Henry Mckeon MD on 05/04/2022 1:26 AM [facility] Approved by: Henry Mckeon MD on 05/04/2022 1:26 AM PST Station ID: [id number]
[2022-05-04] MEDS ORDERED: LIDOCAINE 1% 2 ML VIAL SUBQ STA (01:41)
[2022-05-04] MEDS ORDERED: MIDAZOLAM 2 MG/2 ML VIAL IVP STA ×2 (01:41→02:20)
[2022-05-04 01:42] LABS: COCAINE SCREEN URINE NEGATIVE (NEGATIVE); METHAMPHETAMINES SCREEN, URINE NEGATIVE (NEGATIVE); THC CANNABINOID SCREEN, URINE POSITIVE (NEGATIVE)
[2022-05-04 01:43] LABS: AMPHETAMINE SCREEN,URINE NEGATIVE (NEGATIVE); BARBITURATE SCREEN,UR NEGATIVE (NEGATIVE); BENZODIAZEPINES SCREEN, URINE NEGATIVE (NEGATIVE); METHADONE SCREEN, URINE NEGATIVE (NEGATIVE); OPIATE SCREEN, URINE POSITIVE (NEGATIVE); OXYCODONE SCREEN, URINE NEGATIVE (NEGATIVE); PROPOXYPHENE SCREEN, URINE NEGATIVE (NEGATIVE); TRICYCLIC ANTIDEPRESSANT,URINE NEGATIVE (NEGATIVE)
--- NOTE | 2022-05-04 03:51 | HISTORY & PHYSICAL EXAMINATION ---
Chief Complaint - Chief Complaint Chief Complaint: Confusion History of Present Illness - Admitted From Admitted From:: home - History Obtained From History obtained from: ER physician Exam Limitations: Telemedicine - History of Present Illness HPI Comment/Other: Mr Fernandez is a 71 yo M with hx HTN, COPD, depression, anxiety. Presents to ER via EMS with confusion. Found to be tachycardic, febrile, tx per sepsis protocol in ER. No clear source of infection identified. Unable to obtain history from patient at this time, he has received Versed in ER for agitation. RN at bedside. Pt moves all extremities earlier when awake. Per discussion with ER physician pt was able to answer simple yes/no questions initially - confirmed that he is NOT taking Eliquis. He also c/o abd pain at the time. History - Past Medical History Cardiovascular: reports: None, Hypertension Respiratory: reports: COPD Endocrine/Autoimmune: reports: None GI: reports: GERD, Hepatitis : reports: Benign prostate hypertrophy HEENT: reports: Other Psych: reports: Depression, Anxiety Musculoskeletal: reports: Osteoarthritis, Chronic back pain Derm: reports: None MRSA Hx?: No - Past Surgical History General: reports: Colonoscopy - POLST Patient has POLST: No Meds/Allgy - Home Medications Home Medications: Ambulatory Orders Medication Instructions Recorded Confirmed Buspirone HCl 10 mg PO BID 08/30/13 05/04/22 Gabapentin 400 mg PO TID 08/30/13 05/04/22 Albuterol Sulfate [Proair Hfa] 1 puffs IH BID 11/22/14 11/25/14 Doxazosin [Cardura] 4 mg PO DAILY 11/23/17 05/04/22 Hydrocodone/Acetaminophen 1 - 2 each PO Q6H PRN #7 tablet 11/23/17 [Hydrocodon-Acetaminophen 5-325] Ipratropium/Albuterol [Combivent 11/23/17 Respimat] Oxybutynin [Ditropan] 15 mg PO DAILY 11/23/17 05/04/22 buPROPion [Wellbutrin Sr] 150 mg PO BID 11/23/17 05/04/22 raNITIdine [Zantac] 150 mg 11/23/17 Cyclobenzaprine [Flexeril] 10 mg PO TID PRN #20 tablet 04/16/21 Apixaban [Eliquis] 2.5 mg PO BID #14 tablet 04/26/22 Aspirin EC [Ecotrin] 81 mg PO DAILY 05/04/22 05/04/22 Benazepril HCl [Lotensin] 40 mg PO DAILY 05/04/22 05/04/22 Ondansetron [Zuplenz] 8 mg PO DAILY PRN 05/04/22 05/04/22 Pantoprazole Sodium 20 mg PO DAILY 05/04/22 05/04/22 - Allergies Allergies/Adverse Reactions: Allergies Allergy/AdvReac Type Severity Reaction Status Date / Time mercury (elemental) Allergy Intermediate Hives Verified 05/03/22 21:57 [Mercury (Elemental)] iodine AdvReac Intermediate Anaphylaxis Verified 05/03/22 21:57 Review of Systems - Other Findings Other Findings: Unable to obtain ROS at this time, pt is somnolent. Exam - Vital Signs Reviewed Vital Signs: Yes Vital Signs: Vital Signs x48h Temp Pulse Resp BP Pulse Ox 05/04/22 03:30 37.6 C 99 25 H 151/93 H 99 05/04/22 03:00 96 24 150/93 H 100 05/04/22 02:30 98 31 H 130/92 H 99 05/04/22 02:00 103 H 29 H 148/91 H 99 05/04/22 01:30 98 30 H 140/85 H 99 05/04/22 01:10 38.1 C H 98 31 H 142/96 H 100 05/04/22 00:30 101 H 30 H 142/96 H 100 05/04/22 00:15 108 H 32 H 156/98 H 100 05/03/22 23:19 39.3 C H 112 H 26 H 168/109 H 98 05/03/22 22:30 116 H 20 160/112 H 99 05/03/22 22:00 39.0 C H 114 H 20 178/104 H 97 05/03/22 21:57 39.0 C H 114 H 20 178/104 H 97 - Physical Exam General Appearance: positive: Lethargic Respiratory: positive: No respiratory distress Cardiovascular: positive: Tachycardia Skin: positive: Color nml, No rash (Limited exam via telemedicine. Pt is somnolent, does not answer questions.) Sepsis Event Note (H) - Evaluation Current Stage of Sepsis: Sepsis Possible source of Sepsis: positive: Unknown - Sepsis Criteria Sepsis Criteria: Suspected or Documented, Recorded Temperature greater than 38.3C or Less than 36C, Recorded Heart Rate greater than 90 bpm, Recorded Respiratory Rate greater than 20, WBC count greater than 12,000 or less than 4000, Metabolic: lactate > 2 mmol/L Conclusion/Plan - Lab Results Lab results reviewed: Yes Aldo Bones: 05/03/22 22:20 05/03/22 22:20 - Diagnostic Imaging Results Diagnostic Imaging Results: positive: Final report reviewed - EKG Results EKG Interpreted Independently: Yes - Other Other Results/Comments: Assessment/Plan: Acute metabolic toxic encephalopathy -Etiology unclear -CT head no acute abnormalities -ER physician attempted LP - unsuccessful -Possibly related to polypharmacy vs sepsis, will need to confirm med list with patient when awake/alert -UDS + opiates + cannabis -Continue to monitor closely Sepsis -Source of infection is unclear at this time -CT abd/pelvis, CXR reviewed, UA neg -Continue IV fluids -Continue broad spectrum abx -F/u blood cultures Lactic acidosis -Lactic 2.9->1.8 with IV fluid resuscitation Full code DVT ppx: Heparin sc Clinical telemedicine services delivered using interactive video audio telecommunications while the patient and the rendering provider were not in the same physical location.
[2022-05-04] MEDS ORDERED: ONDANSETRON 4 MG/2 ML VIAL IVP PRN (04:04)
[2022-05-04] MEDS ORDERED: SODIUM CHLORIDE FLUSH 0.9% 10 ML SYRINGE IVP PRN (04:04)
[2022-05-04] MEDS ORDERED: LORazepam 2 MG/ML VIAL IVP STA (04:05)
[2022-05-04] MEDS ORDERED: LORazepam 2 MG/ML VIAL ONE (04:07)
[2022-05-04] MEDS ORDERED: hydrALAZINE INJ 20 MG/ML VIAL IVP PRN (04:09)
[2022-05-04 05:34] LABS: HGB - HEMOGLOBIN 12.6 g/dL (14.0-18.0); MEAN CORPUSCULAR HEMOGLOBIN 29.5 pg (27.0-31.0); MEAN CORPUSCULAR HGB CONC 32.3 g/dL (32.0-36.0); MEAN CORPUSCULAR VOLUME 91.3 fL (80.0-94.0); MEAN PLATELET VOLUME 9.3 fL (7.4-11.4); RED BLOOD COUNT 4.27 10^6/uL (4.70-6.10); RED CELL DISTRIBUTION WIDTH 12.7 % (12.0-15.0); WHITE BLOOD COUNT 28.1 x10^3/uL (4.8-10.8)
[2022-05-04 05:41] LABS: CALCIUM 8.7 mg/dL (8.5-10.3); CREATININE 0.8 mg/dL (0.6-1.2)
[2022-05-04] MEDS: PIPERACILLIN/TAZOBACTAM 3.375 GM in SODIUM CHLORIDE 0.9% MINIBAG 100 ML IV SCH ×3 (07:43→20:22)
[2022-05-04] MEDS: HEPARIN 5,000 UNIT/ML VIAL SUBQ SCH ×2 (09:12→20:23)
[2022-05-04] MEDS: SODIUM CHLORIDE 0.9% 1,000 ML IV SCH ×2 (09:13→21:14)
[2022-05-04] MEDS: SODIUM CHLORIDE FLUSH 0.9% 10 ML SYRINGE IVP SCH ×2 (09:18→20:23)
[2022-05-04] MEDS: VANCOMYCIN INJ 1 GM in SODIUM CHLORIDE 0.9% 250 ML IV SCH (11:51)
--- NOTE | 2022-05-04 15:11 | PHARMACY PROGRESS NOTE ---
- Best Possible Medication History Admit Date and Time: 05/04/22 0404 Processed by: Nursing Medication History completed: Yes Patient Interview: Pt unable to participate Secondary Source(s): Insurance records As the person ultimately responsible for medication therapy, providers are able to order a medication from an existing home medication list in [facility] via the "Reconcile Routine" prior to Confirmation of that medication by operations support manager. Such practice is discouraged except when the physician, in their clinical judgment, deems that a medical need exists for a medication without regard to previous use.
--- NOTE | 2022-05-04 15:55 | PROVIDER PROGRESS NOTE ---
Hospitalist Cross-cover Note - Cross-Cover Note Cross-Cover Note: This afternoon the lab called to inform us that 3 out of 4 of his blood cultures are positive for gram-positive cocci in chains Impression: Gram-positive bacteremia Plan: Continue with empiric IV Zosyn and iv Vancomycin which cover Gram Positive bact eria Await ID and sens results
[2022-05-04] MEDS: ACETAMINOPHEN 1,000 MG/100 ML 1,000 MG/100 ML BAG IV PRN (17:38)
[2022-05-04 20:35] LABS: MAGNESIUM 1.5 mg/dL (1.7-2.8); POTASSIUM 2.6 mmol/L (3.5-5.0)
[2022-05-04] MEDS ORDERED: MAGNESIUM SULFATE 2 GM in SODIUM CHLORIDE 0.9% 50 ML IV ONE (20:59)
[2022-05-04] MEDS ORDERED: MAGNESIUM SULFATE 2 GRAM 2 GM/50 ML BAG IV ONE (21:11)
[2022-05-04] MEDS: POTASSIUM CHLOR 10 MEQ/100 ML 10 MEQ/100 ML BAG IV SCH ×3 (21:16→23:20)
[2022-05-04] MEDS ORDERED: POTASSIUM CHLOR 10 MEQ/100 ML 40 MEQ/400 ML BAG IV ONE (21:17)
[2022-05-04] MEDS: ENOXAPARIN 60 MG/0.6 ML SYRINGE SUBQ SCH (21:26)
[2022-05-04] MEDS ORDERED: AMIODARONE 360 MG/200 ML 200 ML IV ONE (21:35)
[2022-05-04] MEDS ORDERED: AMIODARONE 150 MG/100 ML 100 ML IV ONE (21:35)
[2022-05-04 21:55] LABS: ALBUMIN/GLOBULIN RATIO 0.6 (1.0-2.2); BILIRUBIN,TOTAL 1.1 mg/dL (0.2-1.0); CREATININE 0.6 mg/dL (0.6-1.2); TOTAL PROTEIN 5.1 g/dL (6.7-8.2)
[2022-05-04 21:57] LABS: POTASSIUM 2.5 mmol/L (3.5-5.0)
[2022-05-04 21:58] LABS: CALCIUM 6.3 mg/dL (8.5-10.3)
--- NOTE | 2022-05-04 22:38 | PROVIDER PROGRESS NOTE ---
Hospitalist Cross-cover Note - Cross-Cover Note Cross-Cover Note: Pt having recurrent episodes of NSVT, 5-10 beats. Notified by RN pt is noted to have 5-7 beat episodes every 2-3 min. BP stable 110/79. Pt obtunded unable to get further history regarding chest pain, etc. Troponin markedly elevated. Hypomagnesemia/hypokalemia. -Lovenox sc therapeutic dose, trend troponin -Echo pending, ordered earlier for eval of endocarditis vs cardiomyopathy -LFTs stable, amiodarone bolus + drip ordered given recurrence/frequency of NSVT -Replete and monitor electrolytes closely -Pt obtunded (unchanged since admission per RN exam), ABG ordered -Transfer to ICU Continue to monitor closely.
[2022-05-04 22:51] LABS: ABG HCO3 27.5 mmol/L (22.0-26.0); ABG PCO2 42 mmHg (34-45); ABG PH 7.44 (7.35-7.45); ABG PO2 124 mmHg (80-100); ABG TCO2 28.8 MMOL/L (21.0-29.0)
[2022-05-04 22:52] LABS: ABG OXYGEN SATURATION 99 % (94-98)
[2022-05-05] MEDS: POTASSIUM CHLOR 10 MEQ/100 ML 10 MEQ/100 ML BAG IV SCH (01:21)
[2022-05-05] MEDS: VANCOMYCIN INJ 1 GM in SODIUM CHLORIDE 0.9% 250 ML IV SCH ×3 (04:03→23:45)
[2022-05-05] MEDS: ACETAMINOPHEN 1,000 MG/100 ML 1,000 MG/100 ML BAG IV PRN (04:27)
[2022-05-05] MEDS: PIPERACILLIN/TAZOBACTAM 3.375 GM in SODIUM CHLORIDE 0.9% MINIBAG 100 ML IV SCH ×3 (04:53→20:22)
[2022-05-05 04:56] LABS: BASOPHILS % (AUTO) 0.2 %; HCT - HEMATOCRIT 37.8 % (42.0-52.0); HGB - HEMOGLOBIN 12.3 g/dL (14.0-18.0); LYMPHOCYTES % (AUTO) 5.8 %; MEAN CORPUSCULAR HEMOGLOBIN 30.1 pg (27.0-31.0); MEAN CORPUSCULAR HGB CONC 32.5 g/dL (32.0-36.0); MEAN CORPUSCULAR VOLUME 92.4 fL (80.0-94.0); MEAN PLATELET VOLUME 9.9 fL (7.4-11.4); MONOCYTES % (AUTO) 5.7 %; NEUTROPHILS % (AUTO) 87.6 %; PLT - PLATELET COUNT 357 10^3/uL (130-450); RED BLOOD COUNT 4.09 10^6/uL (4.70-6.10); WHITE BLOOD COUNT 22.5 x10^3/uL (4.8-10.8)
[2022-05-05 05:02] LABS: ABNORMAL LYMPHS % (MANUAL) 0 %
[2022-05-05 05:06] LABS: CALCIUM 8.3 mg/dL (8.5-10.3); CREATININE 0.8 mg/dL (0.6-1.2); MAGNESIUM 2.7 mg/dL (1.7-2.8)
[2022-05-05 05:14] LABS: BAND NEUTROPHILS % (MANUAL) 2 %; LYMPHOCYTES # (MANUAL) 2.5 10^3/uL (1.5-3.5); LYMPHOCYTES % (MANUAL) 11 %; MONOCYTES # (MANUAL) 0.7 10^3/uL (0.0-1.0); NEUTROPHILS # (MANUAL) 19.4 10^3/uL (1.5-6.6)
[2022-05-05 05:15] LABS: DIFFERENTIAL COMMENT MANUAL DIFFERENTIAL; PLATELET ESTIMATE, MANUAL NORMAL (130-450,000) (NORMAL); PLATELET MORPHOLOGY NORMAL APPEARANCE (NORMAL); RBC MORPHOLOGY (MULTIPLE) NORMAL APPEARANCE (NORMAL); WBC MORPHOLOGY (MULTIPLE) NORMAL APPEARANCE (NORMAL)
[2022-05-05] MEDS: SODIUM CHLORIDE FLUSH 0.9% 10 ML SYRINGE IVP SCH ×4 (05:48→23:58)
[2022-05-05 07:15] LABS: CALCIUM, IONIZED 1.06 mmol/L (1.15-1.33); VBG PH 7.47 (7.31-7.41)
[2022-05-05] MEDS ORDERED: POTASSIUM PHOSPHATE 15 MMOL in SODIUM CHLORIDE 0.9% 250 ML IV ONE (08:00)
[2022-05-05] MEDS: ENOXAPARIN 60 MG/0.6 ML SYRINGE SUBQ SCH ×2 (08:33→20:28)
[2022-05-05] MEDS: SODIUM CHLORIDE 0.9% 1,000 ML IV SCH ×4 (08:34→23:45)
[2022-05-05] MEDS ORDERED: ASPIRIN EC 81 MG TABLET PO SCH (10:00)
[2022-05-05] MEDS: AMIODARONE 360 MG/200 ML 200 ML IV SCH ×2 (11:59→14:42)
--- NOTE | 2022-05-05 12:16 | PROVIDER PROGRESS NOTE ---
Subjective - Subjective Pt reports feeling: Improved (He has awoken per his nurse, was able to eat much of the food on his tray. He is mostly napping during the day.) Objective - Vital Signs/Intake & Output Vital Signs: Vital Signs Temp Pulse Resp BP Pulse Ox 05/05/22 12:00 36.9 C 92 24 130/83 H 100 05/05/22 11:00 90 21 117/90 H 100 05/05/22 10:00 90 15 128/92 H 100 05/05/22 09:00 83 17 125/87 H 100 Intake & Output: Intake & Output 05/02/22 05/03/22 05/04/22 05/05/22 23:59 23:59 23:59 23:59 Intake Total 200 4296.667 1804 Output Total 1540 660 Balance 200 2756.667 1144 - Objective General Appearance: positive: No acute distress, Lethargic Eyes Bilateral: positive: Normal inspection, No lid inflammation ENT: positive: No signs of dehydration Neck: positive: Nml inspection Respiratory: positive: No respiratory distress Cardiovascular: positive: Regular rate & rhythm, Systolic murmur Abdomen: positive: Non-tender, Nml bowel sounds, No distention Skin: positive: Warm, Dry Extremities: positive: Non-tender, No pedal edema Neurologic/Psychiatric: positive: Other (Lethargic. He is oriented to person and place but not time. He is mostly napping during the day. Moves all extremities spontaneous) - Lab Results Fish Bones: 05/05/22 04:15 05/05/22 04:15 Other Labs: Lab Results x24hrs 05/05/22 05/05/22 05/05/22 Range/Units 07:07 04:15 04:15 WBC (4.8-10.8) x10^3/uL RBC (4.70-6.10) 10^6/uL Hgb (14.0-18.0) g/dL Hct (42.0-52.0) % MCV (80.0-94.0) fL MCH (27.0-31.0) pg MCHC (32.0-36.0) g/dL RDW (12.0-15.0) % Plt Count (130-450) 10^3/uL MPV (7.4-11.4) fL Neut # (Auto) Lymph # (Auto) [place] # (Auto) Eos # (Auto) Baso # (Auto) Absolute Nucleated RBC Total Counted Band Neuts % (Manual) (0 - 10) % Abnorm Lymph % (Manual) % Nucleated RBC % Neutrophils # (Manual) (1.5-6.6) 10^3/uL Lymphocytes # (Manual) (1.5-3.5) 10^3/uL Monocytes # (Manual) (0.0-1.0) 10^3/uL Eosinophils # (Manual) (0-0.7) 10^3/uL Basophils # (Manual) (0-0.1) 10^3/uL Differential Comment WBC Morphology (NORMAL) Platelet Estimate (NORMAL) Platelet Morphology (NORMAL) RBC Morph Micro Appear (NORMAL) Bld Gas Analysis Time Sample Site ABG pH (7.35-7.45) ABG pCO2 (34-45) mmHg ABG pO2 (80-100) mmHg ABG HCO3 (22.0-26.0) mmol/L ABG Total CO2 (21.0-29.0) MMOL/L ABG O2 Saturation (94-98) % ABG Base Excess (-2.0-3.0) mmol/L Nabeel Test VBG pH 7.470 H (7.31-7.41) Ionized Calcium 1.06 L (1.15-1.33) mmol/L O2 Delivery Device O2 Liters/Min LPM Sodium (135-145) mmol/L Potassium (3.5-5.0) mmol/L Chloride (101-111) mmol/L Carbon Dioxide (21-32) mmol/L Anion Gap (6-13) BUN (6-20) mg/dL Creatinine (0.6-1.2) mg/dL Estimated GFR (MDRD) (>89) Glucose (70-100) mg/dL Calcium (8.5-10.3) mg/dL Phosphorus 1.9 L (2.5-4.6) mg/dL Magnesium (1.7-2.8) mg/dL Total Bilirubin (0.2-1.0) mg/dL AST (10-42) IU/L ALT (10-60) IU/L Alkaline Phosphatase (42-121) IU/L Troponin I High Sens 796.2 H* (2.3-19.7) ng/L Total Protein (6.7-8.2) g/dL Albumin (3.2-5.5) g/dL Globulin (2.1-4.2) g/dL Albumin/Globulin Ratio (1.0-2.2) Nasal Screen MRSA (PCR) (NEGATIVE) 05/05/22 05/05/22 05/04/22 Range/Units 04:15 04:15 22:10 WBC 22.5 H (4.8-10.8) x10^3/uL RBC 4.09 L (4.70-6.10) 10^6/uL Hgb 12.3 L (14.0-18.0) g/dL Hct 37.8 L (42.0-52.0) % MCV 92.4 (80.0-94.0) fL MCH 30.1 (27.0-31.0) pg MCHC 32.5 (32.0-36.0) g/dL RDW 13.0 (12.0-15.0) % Plt Count 357 (130-450) 10^3/uL MPV 9.9 (7.4-11.4) fL Neut # (Auto) Not Reportable Lymph # (Auto) Not Reportable [place] # (Auto) Not Reportable Eos # (Auto) Not Reportable Baso # (Auto) Not Reportable Absolute Nucleated RBC Not Reportable Total Counted 100 Band Neuts % (Manual) 2 (0 - 10) % Abnorm Lymph % (Manual) 0 % Nucleated RBC % Not Reportable Neutrophils # (Manual) 19.4 H (1.5-6.6) 10^3/uL Lymphocytes # (Manual) 2.5 (1.5-3.5) 10^3/uL Monocytes # (Manual) 0.7 (0.0-1.0) 10^3/uL Eosinophils # (Manual) 0.0 (0-0.7) 10^3/uL Basophils # (Manual) 0.0 (0-0.1) 10^3/uL Differential Comment MANUAL DIFFERENTIAL WBC Morphology NORMAL APPEARANCE (NORMAL) Platelet Estimate NORMAL (130-450,000) (NORMAL) Platelet Morphology NORMAL APPEARANCE (NORMAL) RBC Morph Micro Appear NORMAL APPEARANCE (NORMAL) Bld Gas Analysis Time 2220 Sample Site LEFT BRACHIAL ABG pH 7.44 (7.35-7.45) ABG pCO2 42 (34-45) mmHg ABG pO2 124 H (80-100) mmHg ABG HCO3 27.5 H (22.0-26.0) mmol/L ABG Total CO2 28.8 (21.0-29.0) MMOL/L ABG O2 Saturation 99 H (94-98) % ABG Base Excess 3.0 (-2.0-3.0) mmol/L Nabeel Test NOT APPLICABLE VBG pH (7.31-7.41) Ionized Calcium (1.15-1.33) mmol/L O2 Delivery Device NASAL CANNULA O2 Liters/Min 2.00 LPM Sodium 136 (135-145) mmol/L Potassium 4.0 (3.5-5.0) mmol/L Chloride 103 (101-111) mmol/L Carbon Dioxide 26 (21-32) mmol/L Anion Gap 7.0 (6-13) BUN 19 (6-20) mg/dL Creatinine 0.8 (0.6-1.2) mg/dL Estimated GFR (MDRD) 116 (>89) Glucose 106 H (70-100) mg/dL Calcium 8.3 L (8.5-10.3) mg/dL Phosphorus (2.5-4.6) mg/dL Magnesium 2.7 (1.7-2.8) mg/dL Total Bilirubin (0.2-1.0) mg/dL AST (10-42) IU/L ALT (10-60) IU/L Alkaline Phosphatase (42-121) IU/L Troponin I High Sens (2.3-19.7) ng/L Total Protein (6.7-8.2) g/dL Albumin (3.2-5.5) g/dL Globulin (2.1-4.2) g/dL Albumin/Globulin Ratio (1.0-2.2) Nasal Screen MRSA (PCR) (NEGATIVE) 05/04/22 05/04/22 05/04/22 Range/Units 22:05 20:15 20:15 WBC (4.8-10.8) x10^3/uL RBC (4.70-6.10) 10^6/uL Hgb (14.0-18.0) g/dL Hct (42.0-52.0) % MCV (80.0-94.0) fL MCH (27.0-31.0) pg MCHC (32.0-36.0) g/dL RDW (12.0-15.0) % Plt Count (130-450) 10^3/uL MPV (7.4-11.4) fL Neut # (Auto) Lymph # (Auto) [place] # (Auto) Eos # (Auto) Baso # (Auto) Absolute Nucleated RBC Total Counted Band Neuts % (Manual) (0 - 10) % Abnorm Lymph % (Manual) % Nucleated RBC % Neutrophils # (Manual) (1.5-6.6) 10^3/uL Lymphocytes # (Manual) (1.5-3.5) 10^3/uL Monocytes # (Manual) (0.0-1.0) 10^3/uL Eosinophils # (Manual) (0-0.7) 10^3/uL Basophils # (Manual) (0-0.1) 10^3/uL Differential Comment WBC Morphology (NORMAL) Platelet Estimate (NORMAL) Platelet Morphology (NORMAL) RBC Morph Micro Appear (NORMAL) Bld Gas Analysis Time Sample Site ABG pH (7.35-7.45) ABG pCO2 (34-45) mmHg ABG pO2 (80-100) mmHg ABG HCO3 (22.0-26.0) mmol/L ABG Total CO2 (21.0-29.0) MMOL/L ABG O2 Saturation (94-98) % ABG Base Excess (-2.0-3.0) mmol/L Nabeel Test VBG pH (7.31-7.41) Ionized Calcium (1.15-1.33) mmol/L O2 Delivery Device O2 Liters/Min LPM Sodium 134 L (135-145) mmol/L Potassium 2.5 L* 2.6 L (3.5-5.0) mmol/L Chloride 106 (101-111) mmol/L Carbon Dioxide 19 L (21-32) mmol/L Anion Gap 9.0 (6-13) BUN 15 (6-20) mg/dL Creatinine 0.6 (0.6-1.2) mg/dL Estimated GFR (MDRD) 161 (>89) Glucose 97 (70-100) mg/dL Calcium 6.3 L* (8.5-10.3) mg/dL Phosphorus (2.5-4.6) mg/dL Magnesium 1.5 L (1.7-2.8) mg/dL Total Bilirubin 1.1 H (0.2-1.0) mg/dL AST 27 (10-42) IU/L ALT 32 (10-60) IU/L Alkaline Phosphatase 58 (42-121) IU/L Troponin I High Sens (2.3-19.7) ng/L Total Protein 5.1 L (6.7-8.2) g/dL Albumin 2.0 L (3.2-5.5) g/dL Globulin 3.1 (2.1-4.2) g/dL Albumin/Globulin Ratio 0.6 L (1.0-2.2) Nasal Screen MRSA (PCR) NEGATIVE (NEGATIVE) 05/04/22 Range/Units 20:15 WBC (4.8-10.8) x10^3/uL RBC (4.70-6.10) 10^6/uL Hgb (14.0-18.0) g/dL Hct (42.0-52.0) % MCV (80.0-94.0) fL MCH (27.0-31.0) pg MCHC (32.0-36.0) g/dL RDW (12.0-15.0) % Plt Count (130-450) 10^3/uL MPV (7.4-11.4) fL Neut # (Auto) Lymph # (Auto) [place] # (Auto) Eos # (Auto) Baso # (Auto) Absolute Nucleated RBC Total Counted Band Neuts % (Manual) (0 - 10) % Abnorm Lymph % (Manual) % Nucleated RBC % Neutrophils # (Manual) (1.5-6.6) 10^3/uL Lymphocytes # (Manual) (1.5-3.5) 10^3/uL Monocytes # (Manual) (0.0-1.0) 10^3/uL Eosinophils # (Manual) (0-0.7) 10^3/uL Basophils # (Manual) (0-0.1) 10^3/uL Differential Comment WBC Morphology (NORMAL) Platelet Estimate (NORMAL) Platelet Morphology (NORMAL) RBC Morph Micro Appear (NORMAL) Bld Gas Analysis Time Sample Site ABG pH (7.35-7.45) ABG pCO2 (34-45) mmHg ABG pO2 (80-100) mmHg ABG HCO3 (22.0-26.0) mmol/L ABG Total CO2 (21.0-29.0) MMOL/L ABG O2 Saturation (94-98) % ABG Base Excess (-2.0-3.0) mmol/L Nabeel Test VBG pH (7.31-7.41) Ionized Calcium (1.15-1.33) mmol/L O2 Delivery Device O2 Liters/Min LPM Sodium (135-145) mmol/L Potassium (3.5-5.0) mmol/L Chloride (101-111) mmol/L Carbon Dioxide (21-32) mmol/L Anion Gap (6-13) BUN (6-20) mg/dL Creatinine (0.6-1.2) mg/dL Estimated GFR (MDRD) (>89) Glucose (70-100) mg/dL Calcium (8.5-10.3) mg/dL Phosphorus (2.5-4.6) mg/dL Magnesium (1.7-2.8) mg/dL Total Bilirubin (0.2-1.0) mg/dL AST (10-42) IU/L ALT (10-60) IU/L Alkaline Phosphatase (42-121) IU/L Troponin I High Sens 1377.7 H* (2.3-19.7) ng/L Total Protein (6.7-8.2) g/dL Albumin (3.2-5.5) g/dL Globulin (2.1-4.2) g/dL Albumin/Globulin Ratio (1.0-2.2) Nasal Screen MRSA (PCR) (NEGATIVE) Sepsis Event Note (H) - Evaluation Current Stage of Sepsis: Sepsis Possible source of Sepsis: positive: Unknown - Sepsis Criteria Sepsis Criteria: Suspected or Documented, Recorded Temperature greater than 38.3C or Less than 36C, Recorded Heart Rate greater than 90 bpm, Recorded Respiratory Rate greater than 20, WBC count greater than 12,000 or less than 4000, Metabolic: lactate > 2 mmol/L Assessment/Plan - Problem List (1) Sepsis Impression: He met sepsis criteria with: Tachycardia, fever, elevated white blood count and altered mental status. The source of infection is not apparent. His blood cultures quickly turned positive with 3 out of 4 growing gram-positive cocci and he was kept on empiric IV antibiotics Plan: Will attempt to localize the source of his streptococcal bacteremia with obtaining a repeat chest x-ray, Echo to evaluate for endocarditis, and will consider repeating the LP which was unsuccessful when tried in the ED at admission Continue antibiotics to cover MRSA and other gram-positive's, until sensitivities are back Follow WBC daily Qualifiers: Sepsis type: sepsis due to unspecified organism Sepsis acute organ dysfunction status: unspecified Qualified Code(s): A41.9 - Sepsis, unspecified organism (2) Bacteremia due to Streptococcus pneumoniae Impression: Yesterday's blood cultures quickly turned positive, 3 out of 4 growing GPC. Today it had been identified as Streptococcus pneumoniae Plan: Obtain chest x-ray to check for blossoming of the pneumonia after he has been hydrated Continue with empiric antibiotics Follow WBC (3) V-tach Impression: Yesterday late afternoon he started to have 7-10 beat runs of V. tach, most were multifocal. He was moved into the ICU by the telemedicine night doctor and put on amiodarone drip. Troponins were cycled and he is ruling in for an MA Plan: Treat the underlying MA. Start beta-blockers Follow electrolytes and magnesium and correct these if abnormal Continue with iv amiodarone for another day Echo ordered to evaluate his underlying LV function>> The Echo was done today and shows global LV both kinesis except basal areas have some normal function, LVEF is 25%. The patient is in critical condition. Remain in ICU. The patiently is currently a full code. (4) Acute non-ST elevation myocardial infarction (NSTEMI) Impression: When he had V. tach that started yesterday afternoon 05/04, troponins were done and came back showing he is having an NSTEMI w/ trop 1377, the next troponin done today has decreased to 796 therefore his troponins had already peaked. An EKG was done today to look for new changes and there are indeed new deeply inverted T waves in the anterior leads. These are new from his admission EKG done two days ago, on 05/03. An Echo was ordered>> He does in fact have anterolateral, apical and septal hypokinesis, the overall LVEF is 25%. There is no old echo available for comparison He was started on twice daily Lovenox by the night telemedicine doctor. Plan: Continue BID Lovenox for total of 48-72 hrs Start daily aspirin Continue with his statin Continue a beta-emeli Determination about whether he is a candidate for coronary angiogram, will depend on discussing with his , since the patient appears to have underlying dementia and also currently is too lethargic to have a discussion with (5) Acute systolic heart failure Impression: LVEF by echo done today is 20 to 25%. There is no history of systolic heart failure. He is ruling in for an MA which started yesterday, when the V. tach was evident Plan: We will adjust his medications to include beta-emeli, spironolactone, GROVER or ARB. Currently no Lasix is indicated since he is volume depleted from sepsis. (6) Altered mental status Impression: We felt this was from his sepsis. He is slowly improving, is intermittently alert, could eat and knows his name but then falls quickly back to sleep during a conversation. Plan: Supportive care Continue to not restart his Wellbutrin, buspirone or gabapentin Qualifiers: Altered mental status type: unspecified Qualified Code(s): R41.82 - Altered mental status, unspecified
--- NOTE | 2022-05-05 12:48 | XRAY Report ---
PROCEDURE: Chest 1 View X-Ray INDICATIONS: Strep bacteremia, eval for pneumonia TECHNIQUE: One view of the chest was acquired. COMPARISON: 05/03/2022, 04/26/2022.. FINDINGS: Surgical changes and devices: None. Lungs and pleura: No pleural effusions or pneumothorax. Lungs are clear. Mediastinum: Mildly tortuous thoracic aorta is seen. Heart size is enlarged. Bones and chest wall: No suspicious bony lesions. Overlying soft tissues appear unremarkable. IMPRESSION: No focal infiltrate, pleural effusion or pneumothorax. Reviewed by: Harman Zepeda MD on 05/05/2022 12:46 PM PST Approved by: Harman Zepeda MD on 05/05/2022 12:46 PM PST Station ID: [id number]
[2022-05-05] MEDS ORDERED: ALBUTEROL NEB 2.5 MG/3 ML INH PRN (17:09)
[2022-05-05] MEDS ORDERED: METOPROLOL 5 MG/5 ML VIAL IVP STA (17:47)
[2022-05-05] MEDS: NITROGLYCERIN SL 0.4 MG TABLET SL PRN ×3 (17:54→18:46)
[2022-05-05] MEDS: NITROGLYCERIN 2% PASTE TOP SCH (19:44)
[2022-05-05] MEDS: ACETAMINOPHEN 325 MG TABLET PO PRN (20:26)
[2022-05-05] MEDS: DOXAZOSIN 4 MG TABLET PO SCH (20:27)
[2022-05-05] MEDS: METOPROLOL TARTRATE 25 MG TABLET PO SCH (20:28)
[2022-05-06] MEDS: NITROGLYCERIN 2% PASTE TOP SCH ×3 (03:10→19:36)
[2022-05-06] MEDS: PIPERACILLIN/TAZOBACTAM 3.375 GM in SODIUM CHLORIDE 0.9% MINIBAG 100 ML IV SCH (05:22)
[2022-05-06 05:29] LABS: BASOPHILS % (AUTO) 0.1 %; EOSINOPHILS # (AUTO) 0.2 10^3/uL (0.0-0.7); EOSINOPHILS % (AUTO) 1.5 %; HCT - HEMATOCRIT 34.4 % (42.0-52.0); LYMPHOCYTES # (AUTO) 1.7 10^3/uL (1.5-3.5); MEAN CORPUSCULAR HEMOGLOBIN 29.7 pg (27.0-31.0); MEAN PLATELET VOLUME 9.9 fL (7.4-11.4); MONOCYTES # (AUTO) 0.9 10^3/uL (0.0-1.0); MONOCYTES % (AUTO) 6.2 %; NEUTROPHILS # (AUTO) 11.3 10^3/uL (1.5-6.6); NEUTROPHILS % (AUTO) 79.7 %; PLT - PLATELET COUNT 345 10^3/uL (130-450); RED CELL DISTRIBUTION WIDTH 13.1 % (12.0-15.0); WHITE BLOOD COUNT 14.1 x10^3/uL (4.8-10.8)
[2022-05-06 05:32] LABS: CALCIUM, IONIZED 1.02 mmol/L (1.15-1.33); VBG PH 7.536 (7.31-7.41)
[2022-05-06 05:41] LABS: CALCIUM 7.9 mg/dL (8.5-10.3); CREATININE 0.8 mg/dL (0.6-1.2); MAGNESIUM 2.3 mg/dL (1.7-2.8); PHOSPHORUS 1.9 mg/dL (2.5-4.6); POTASSIUM 3.7 mmol/L (3.5-5.0)
[2022-05-06] MEDS ORDERED: CALCIUM GLUC 1,000MG/50ML-NACL 1,000 MG/50 ML BAG IV ONE (06:00)
[2022-05-06] MEDS ORDERED: PANTOPRAZOLE 40 MG TABLET PO SCH (07:00)
[2022-05-06] MEDS ORDERED: POTASSIUM PHOSPHATE 15 MMOL in SODIUM CHLORIDE 0.9% 250 ML IV ONE (08:00)
[2022-05-06] MEDS: METOPROLOL TARTRATE 25 MG TABLET PO SCH ×2 (08:16→20:28)
[2022-05-06] MEDS: ENOXAPARIN 60 MG/0.6 ML SYRINGE SUBQ SCH ×2 (08:17→20:28)
[2022-05-06] MEDS: SODIUM CHLORIDE FLUSH 0.9% 10 ML SYRINGE IVP SCH ×3 (08:17→20:29)
[2022-05-06] MEDS ORDERED: lisinopriL 20 MG TABLET PO SCH (09:00)
[2022-05-06] MEDS ORDERED: ASPIRIN EC 81 MG TABLET PO SCH (09:00)
[2022-05-06] MEDS ORDERED: cefTRIAXone 2 GM VIAL IVP SCH (11:00)
[2022-05-06] MEDS ORDERED: cefTRIAXone 2 GM in SODIUM CHLORIDE 0.9% MINIBAG 100 ML IV SCH (12:00)
[2022-05-06] MEDS ORDERED: MULTIVITAMIN W/MINERALS TABLET PO SCH (17:00)
[2022-05-06] MEDS ORDERED: CHOLECALCIFEROL 25 MCG TABLET PO SCH (17:00)
[2022-05-06] MEDS ORDERED: LOPERAMIDE 2 MG CAPSULE PO PRN (17:38)
--- NOTE | 2022-05-06 18:28 | PROVIDER PROGRESS NOTE ---
Objective - Vital Signs/Intake & Output Vital Signs: Vital Signs Temp Pulse Resp BP Pulse Ox 05/06/22 17:00 36.9 C 90 16 150/94 H 100 Intake & Output: Intake & Output 05/03/22 05/04/22 05/05/22 05/06/22 23:59 23:59 23:59 23:59 Intake Total 200 4296.667 5680.668 2640.033 Output Total 1540 1335 1225 Balance 200 2756.667 4345.668 1415.033 - Lab Results Fish Bones: 05/06/22 05:20 05/06/22 05:20 Other Labs: Lab Results x24hrs 05/06/22 05/06/22 05/06/22 Range/Units 14:40 11:00 05:20 WBC (4.8-10.8) x10^3/uL RBC (4.70-6.10) 10^6/uL Hgb (14.0-18.0) g/dL Hct (42.0-52.0) % MCV (80.0-94.0) fL MCH (27.0-31.0) pg MCHC (32.0-36.0) g/dL RDW (12.0-15.0) % Plt Count (130-450) 10^3/uL MPV (7.4-11.4) fL Neut # (Auto) (1.5-6.6) 10^3/uL Lymph # (Auto) (1.5-3.5) 10^3/uL Martin # (Auto) (0.0-1.0) 10^3/uL Eos # (Auto) (0.0-0.7) 10^3/uL Baso # (Auto) (0.0-0.1) 10^3/uL Absolute Nucleated RBC x10^3/uL Nucleated RBC % /100WBC VBG pH (7.31-7.41) Ionized Calcium (1.15-1.33) mmol/L Sodium (135-145) mmol/L Potassium (3.5-5.0) mmol/L Chloride (101-111) mmol/L Carbon Dioxide (21-32) mmol/L Anion Gap (6-13) BUN (6-20) mg/dL Creatinine (0.6-1.2) mg/dL Estimated GFR (MDRD) (>89) Glucose (70-100) mg/dL Calcium (8.5-10.3) mg/dL Phosphorus 2.4 L (2.5-4.6) mg/dL Magnesium (1.7-2.8) mg/dL Troponin I High Sens 364.4 H* (2.3-19.7) ng/L Stl C. diff Tox B Gene NEGATIVE (NEGATIVE) 05/06/22 05/06/22 05/06/22 Range/Units 05:20 05:20 05:20 WBC 14.1 H (4.8-10.8) x10^3/uL RBC 3.70 L (4.70-6.10) 10^6/uL Hgb 11.0 L (14.0-18.0) g/dL Hct 34.4 L (42.0-52.0) % MCV 93.0 (80.0-94.0) fL MCH 29.7 (27.0-31.0) pg MCHC 32.0 (32.0-36.0) g/dL RDW 13.1 (12.0-15.0) % Plt Count 345 (130-450) 10^3/uL MPV 9.9 (7.4-11.4) fL Neut # (Auto) 11.3 H (1.5-6.6) 10^3/uL Lymph # (Auto) 1.7 (1.5-3.5) 10^3/uL Martin # (Auto) 0.9 (0.0-1.0) 10^3/uL Eos # (Auto) 0.2 (0.0-0.7) 10^3/uL Baso # (Auto) 0.0 (0.0-0.1) 10^3/uL Absolute Nucleated RBC 0.00 x10^3/uL Nucleated RBC % 0.0 /100WBC VBG pH 7.536 H (7.31-7.41) Ionized Calcium 1.02 L (1.15-1.33) mmol/L Sodium 134 L (135-145) mmol/L Potassium 3.7 (3.5-5.0) mmol/L Chloride 103 (101-111) mmol/L Carbon Dioxide 23 (21-32) mmol/L Anion Gap 8.0 (6-13) BUN 19 (6-20) mg/dL Creatinine 0.8 (0.6-1.2) mg/dL Estimated GFR (MDRD) 116 (>89) Glucose 99 (70-100) mg/dL Calcium 7.9 L (8.5-10.3) mg/dL Phosphorus 1.9 L (2.5-4.6) mg/dL Magnesium 2.3 (1.7-2.8) mg/dL Troponin I High Sens (2.3-19.7) ng/L Stl C. diff Tox B Gene (NEGATIVE) 05/05/22 Range/Units 19:12 WBC (4.8-10.8) x10^3/uL RBC (4.70-6.10) 10^6/uL Hgb (14.0-18.0) g/dL Hct (42.0-52.0) % MCV (80.0-94.0) fL MCH (27.0-31.0) pg MCHC (32.0-36.0) g/dL RDW (12.0-15.0) % Plt Count (130-450) 10^3/uL MPV (7.4-11.4) fL Neut # (Auto) (1.5-6.6) 10^3/uL Lymph # (Auto) (1.5-3.5) 10^3/uL Martin # (Auto) (0.0-1.0) 10^3/uL Eos # (Auto) (0.0-0.7) 10^3/uL Baso # (Auto) (0.0-0.1) 10^3/uL Absolute Nucleated RBC x10^3/uL Nucleated RBC % /100WBC VBG pH (7.31-7.41) Ionized Calcium (1.15-1.33) mmol/L Sodium (135-145) mmol/L Potassium (3.5-5.0) mmol/L Chloride (101-111) mmol/L Carbon Dioxide (21-32) mmol/L Anion Gap (6-13) BUN (6-20) mg/dL Creatinine (0.6-1.2) mg/dL Estimated GFR (MDRD) (>89) Glucose (70-100) mg/dL Calcium (8.5-10.3) mg/dL Phosphorus (2.5-4.6) mg/dL Magnesium (1.7-2.8) mg/dL Troponin I High Sens 736.2 H* (2.3-19.7) ng/L Stl C. diff Tox B Gene (NEGATIVE) Sepsis Event Note (H) - Evaluation Current Stage of Sepsis: Sepsis Possible source of Sepsis: positive: Unknown - Sepsis Criteria Sepsis Criteria: Suspected or Documented, Recorded Temperature greater than 38.3C or Less than 36C, Recorded Heart Rate greater than 90 bpm, Recorded Respiratory Rate greater than 20, WBC count greater than 12,000 or less than 4000, Metabolic: lactate > 2 mmol/L Assessment/Plan - Problem List (1) Bacteremia due to Streptococcus pneumoniae Impression: Adm blood cultures quickly turned positive, 3 out of 4 growing GPC. Today it had been identified as Streptococcus pneumoniae Plan: Obtain chest x-ray to check for blossoming of the pneumonia after he has been hydrated Continue with empiric antibiotics Follow WBC (2) V-tach Impression: Yesterday late afternoon he started to have 7-10 beat runs of V. tach, most were multifocal. He was moved into the ICU by the telemedicine night doctor and put on amiodarone drip. Troponins were cycled and he is ruling in for an LA Plan: Treat the underlying LA. Start beta-blockers Follow electrolytes and magnesium and correct these if abnormal Continue with iv amiodarone for another day Echo ordered to evaluate his underlying LV function>> The Echo was done today and shows global LV both kinesis except basal areas have some normal function, LVEF is 25%. The patient is in critical condition. Remain in ICU. The patiently is currently a full code. (4) Acute non-ST elevation myocardial infarction (NSTEMI) Impression: When he had V. tach that started yesterday afternoon 05/04, troponins were done and came back showing he is having an NSTEMI w/ trop 1377, the next troponin don e today has decreased to 796 therefore his troponins had already peaked. An EKG was done today to look for new changes and there are indeed new deeply inverted T waves in the anterior leads. These are new from his admission EKG done two days ago, on 05/03. An Echo was ordered>> He does in fact have anterolateral, apical and septal hypokinesis, the overall LVEF is 25%. There is no old echo available for comparison He was started on twice daily Lovenox by the night telemedicine doctor. Plan: Continue BID Lovenox for total of 48-72 hrs Start daily aspirin Continue with his statin Continue a beta-emeli Determination about whether he is a candidate for coronary angiogram, will depend on discussing with his , since the patient appears to have underlying dementia and also currently is too lethargic to have a discussion with (5) Acute systolic heart failure Impression: LVEF by echo done today is 20 to 25%. There is no history of systolic heart f ailure. He is ruling in for an LA which started yesterday, when the V. tach was evident Plan: We will adjust his medications to include beta-emeli, spironolactone, GROVER or ARB. Currently no Lasix is indicated since he is volume depleted from sepsis. (6) Altered mental status Impression: We felt this was from his sepsis. He is slowly improving, is intermittently alert, could eat and knows his name but then falls quickly back to sleep during a conversation. Plan: Supportive care Continue to not restart his Wellbutrin, buspirone or gabapentin Qualifiers: Altered mental status type: unspecified Qualified Code(s): R41.82 - Altered mental status, unspecified (1) Sepsis Impression: He met sepsis criteria with: Tachycardia, fever, elevated white blood count and altered mental status. The source of infection is not apparent. His septic parameters have resolved and he can be moved out of ICU. (5) Altered mental status Qualifiers: Altered mental status type: unspecified Qualified Code(s): R41.82 - Altered mental status, unspecified
--- NOTE | 2022-05-06 18:45 | Discharge Plan ---
Discharge Plan Problem Reviewed?: Yes Disposition: 02 Transfer Acute Care Hosp No Smoking: If you smoke, Please STOP! Call for help.
--- NOTE | 2022-05-06 18:46 | DISCHARGE SUMMARY ---
Discharge Summary Admit Date: 05/04/22 Discharge Date: 05/06/22 Discharging Provider: Dr Rona Jaquez Primary Care Provider: Dr Dimas Corey Code Status: Attempt Resuscitation Condition at Discharge: Fair Discharge Disposition: 02 Transfer Acute Care Hosp Discharge Facility Name: [facility] History of Present Illness: Mr Fernandez is a 71 yo Black male with hx HTN, depression, anxiety. Presents to ER via EMS with confusion. Found to be tachycardic, febrile, started tx per sepsis protocol in ER. No clear source of infection identified. Unable to obtain history from patient at this time, he has received Versed in ER for agitation. RN at bedside. Pt moves all extremities earlier when awake. Per discussion with ER physician, pt was able to answer simple yes/no questions initially and confirmed that he is not taking Eliquis. He also c/o abd pain at the time. Work up shows L.A. 2.9, Procalcitonin 1.39, WBC 16.9, HR 116 in sinus tach, temp 39.0 C, unremarkable U/A and CXR, and CT abdomen also unremarkable. An LP was attempted by the ED provider and was unsuccessful, no fluid was sent off for a nalysis. He is being admitted to inpatient status due to sepsis causing AMS, source of an infection is not immediately clear. We will start him on iv fluids and empiric IV Zosyn and IV Vanco. His CODE STATUS is a full code. - HOSPITAL COURSE Hospital Course: (1) Sepsis He met sepsis criteria with: Tachycardia, fever, elevated white blood count, elevated L.A. and altered mental status. The source of his bacteremia is still not apparent. His septic parameters and AMS have resolved and he was moved out of ICU. (2) Bacteremia due to Streptococcus pneumoniae Admission blood cultures taken 05/04 quickly turned positive, with 3 out of 4 growing GPC that have now been been identified as Streptococcus pneumoniae. Repeat chest x-ray, to check for blossoming of pneumonia are neg. His empiric IV Vanco and IV Zosyn have been changed to iv Ceftriaxone 2 g daily based on sensitivities. A murmur is heard, and Echo was ordered to evaluate for endocarditis, but vegetations could not be ruled out because of valves being sclerotic. He needs a MINA. He will be transferred to [facility] to continue treatment of his bacteremia and to evaluate the source, and obtain a MINA. (3) V-tach On 05/04 late afternoon he started to have recurrent 7-10 beat runs of V. tach, most were multifocal. He was moved into the ICU by the telemedicine night doctor and ordered an Amiodarone drip. Troponins were cycled and he has ruled in for an MD (4) Acute non-ST elevation myocardial infarction (NSTEMI) When he had V. tach 05/04, hs-troponins were done and came back 1377>> 796>> 600. A repeat EKG was done that showed very deep, new T wave inversions in the anteri or leads. He has been treated with BID Lovenox, daily baby aspirin, statin and B-emeli. (5) Acute systolic heart failure An Echo was ordered that showed anterolateral, apical and septal hypokinesis, the overall LVEF is 25%. There is no old Echo available for comparison. There is no prior history of systolic heart failure. GROVER was added, but no Spironolactone or Lasix since he is euvolumic and had presented volume depleted from sepsis. (6) Post-MD angina On 05/05, he had 2 episodes of chest pain and reported that there was chest pain a week ago. He received 3 sublingual nitroglycerin before he had relief and has been started on Nitropaste. He will be transferred to [facility] to continue management of his MD and post-MD chest pain; he likely needs a coronary angio. (7) Altered mental status We felt this was from his sepsis. He slowly improved but falls asleep quickly ev en during a conversation. We have not restart his home meds of Wellbutrin, buspirone or gabapentin. (8) Diarrhea He had several episodes of watery diarrhea 05/06/2022. A sample for C. difficile was sent and is negative. Imodium as needed has been started. (9) BPH We continued his doxazosin. - ALLERGIES Allergies/Adverse Reactions: Allergies Allergy/AdvReac Type Severity Reaction Status Date / Time mercury (elemental) Allergy Intermediate Hives Verified 05/03/22 21:57 [Mercury (Elemental)] iodine AdvReac Intermediate Anaphylaxis Verified 05/03/22 21:57 - MEDICATIONS Home Medications: Ambulatory Orders Medication Instructions Recorded Confirmed Buspirone HCl 10 mg PO BID 08/30/13 05/04/22 Gabapentin 400 mg PO TID 08/30/13 05/04/22 Albuterol Sulfate [Proair Hfa] 1 puffs IH Q6H PRN 11/22/14 05/04/22 Doxazosin [Cardura] 4 mg PO DAILY 11/23/17 05/04/22 Ipratropium/Albuterol [Combivent 1 - 2 puffs INH Q6H PRN 11/23/17 05/04/22 Respimat] Oxybutynin [Ditropan] 15 mg PO DAILY 11/23/17 05/04/22 buPROPion [Wellbutrin Sr] 150 mg PO BID 11/23/17 05/04/22 Aspirin EC [Ecotrin] 81 mg PO DAILY 05/04/22 05/04/22 Benazepril HCl [Lotensin] 40 mg PO DAILY 05/04/22 05/04/22 Ondansetron [Zuplenz] 8 mg PO DAILY PRN 05/04/22 05/04/22 Pantoprazole Sodium 20 mg PO DAILY 05/04/22 05/04/22 - PHYSICAL EXAM AT DISCHARGE General Appearance: positive: No acute distress, Alert, Lethargic, Other (Thin black male, appears older than his age.) Eyes Bilateral: positive: Normal inspection, No lid inflammation ENT: positive: ENT inspection nml, No signs of dehydration, Other (edentulous) Neck: positive: Nml inspection, No JVD Respiratory: positive: No respiratory distress, Breath sounds nml Cardiovascular: positive: Regular rate & rhythm, Systolic murmur Abdomen: positive: Non-tender, Nml bowel sounds, No distention Skin: positive: Warm, Dry Extremities: positive: Non-tender, No pedal edema Neurologic/Psychiatric: positive: Oriented x3, Motor nml, Other (Poor historian) - LABS Result Diagrams: 05/06/22 05:20 05/06/22 05:20 - DIAGNOSTIC IMAGING Diagnostic Imaging Results: Final report reviewed - SEPSIS Current Stage of Sepsis: Sepsis Possible source of Sepsis: Unknown Sepsis Criteria: Suspected or Documented, Recorded Temperature greater than 38.3C or Less than 36C, Recorded Heart Rate greater than 90 bpm, Recorded Respiratory Rate greater than 20, WBC count greater than 12,000 or less than 4000, [employer] SALES CONSULTANT: altered consciousness (unrelated to primary neuro pathology), Metabolic: lactate > 2 mmol/L - FOLLOW UP Follow Up: This will be determined after his hospitalization at [facility]. - TIME SPENT Time Spent in Discharge (Minutes): 60
[2022-05-06 20:03] VITALS: BP 130/91
[2022-05-06] MEDS: DOXAZOSIN 4 MG TABLET PO SCH (20:28)
[2022-05-06] MEDS: ACETAMINOPHEN 325 MG TABLET PO PRN (21:38)
== END 2022-05-06 21:50 | disposition short-term general hospital (02) | DRG 871 ==
LOC: EDUNIT# → ED 21:52 → MS2 05-04 04:04 → ICU 05-04 21:39
PROVIDERS: ADMIT Student in an Organized Health Care Education/Training Program; ATTEND Internal Medicine
DX: A41.9 Sepsis, unspecified organism (principal); I10 Essential (primary) hypertension; A40.3 Sepsis due to Streptococcus pneumoniae; F17.210 Nicotine dependence, cigarettes, uncomplicated; D72.829 Elevated white blood cell count, unspecified; G92.8 Other toxic encephalopathy; E87.20 Acidosis, unspecified; R10.9 Unspecified abdominal pain; Z20.822 Contact with and (suspected) exposure to COVID-19; I21.4 Non-ST elevation (NSTEMI) myocardial infarction; I50.21 Acute systolic (congestive) heart failure; I47.20 Ventricular tachycardia, unspecified; I23.7 Postinfarction angina; F41.9 Anxiety disorder, unspecified; F32.A Depression, unspecified; I11.0 Hypertensive heart disease with heart failure; N40.0 Benign prostatic hyperplasia without lower urinary tract symptoms; R19.7 Diarrhea, unspecified; J44.9 Chronic obstructive pulmonary disease, unspecified; K21.9 Gastro-esophageal reflux disease without esophagitis; M19.90 Unspecified osteoarthritis, unspecified site; G89.29 Other chronic pain; M54.9 Dorsalgia, unspecified
CPT/HCPCS: 36415; 36600; 62270; 70450; 71045; 74177; 80048; 80053; 80306; 81001; 82330; 82803; 83605; 83690; 83735; 84100; 84132; 84145; 84443; 84484; 85025; 85027; 85610; 85730; 87040; 87077; 87150; 87181; 87493; 87633; 93005; 93306; 96365; 96366; 96367; 96368; 96375; 96376; 99284; 99285; A9270; J0131; J1650; J2060; J3370; Q9967; 81003; 87086